=== PATIENT | male | born 1940 | race Caucasian/White ===

== ENCOUNTER → 2019-03-30 | Day surgery (SDC) | payer MEDICARE, BC ==
[~2019-03-30] VITALS: Ht 175.3 cm; Wt 100.7 kg
[~2019-03-30] MED LIST: AMLODIPINE BESYL5 MG PO; ASPIR 8181 MG PO; CEFDINIR PO; FENTANYL CITRATE/PF 100MCG/2 ML INJ ONE; FOSAMAX70 MG; IOPAMIDOL 300MG/ML 50ML INFUS..BTL IV ONE; LASIX20 MG PO; LASIX40 MG PO; LIDOCAINE HCL 2% LOCAL 20 ML VIAL ONE; LUPRON DEPOT3.75 MG; METOPROLOL TART50 MG PO; MIDAZOLAM HCL 2 MG/2 ML VIAL ONE; PREDNISONE10 MG PO; SODIUM CHLORIDE 0.9% 500ML 0 ML ONE; SODIUM CHLORIDE 0.9% 500ML 1,000 ML ONE; VITAMIN D1000 UNI1 PO; provastatin PO; tumeric PO
--- OUTSIDE RECORDS SUMMARY | 2019-03-30 06:32 | XMS REPORT | Clinical Summary ---
Author Author [facility] Organization [facility] Address Unknown Phone Unavailable Care Team Providers Care Warehouse Shipper Name Role Phone Asked, No Pcp PCP Unavailable Allergies Comments Active Allergy Reactions Severity Noted Date Penicillins Rash Low 09/12/2017 Medications End Date Status Medication Sig Dispensed Refills Start Date Active metFORMIN (GLUCOPHAGE) Take 1,000 mg 0 1,000 mg tablet by mouth 2 (two) times a day. Active quinapril (ACCUPRIL) 40 Take 40 mg by 0 MG tablet mouth 2 (two) times a day. Active hydrALAZINE (APRESOLINE) Take 50 mg by 0 50 MG tablet mouth 2 (two) times a day. Active metoprolol tartrate Take 50 mg by 0 (LOPRESSOR) 50 mg tablet mouth 2 (two) times a day. Active amLODIPine (NORVASC) 5 mg Take 5 mg by 0 tablet mouth daily. Active alendronate (FOSAMAX) 70 Take 70 mg by 0 MG tablet mouth every 7 days. Take in the morning with a full glass of water on an empty stomach, do NOT take anything else by mouth or lie down for the next 30 min. Active aspirin 325 MG tablet Take 325 mg 0 by mouth daily. Active cholecalciferol, vitamin Take 5,000 0 D3, (VITAMIN D3) 5,000 Units by unit tablet mouth daily. Active POMEGRANATE Take 250 mg 0 XT/BIOFLAV,CITRUS by mouth (POMEGRANATE ORAL) daily. Active LYCOPENE ORAL Take 10 mg by 0 mouth daily. Active MIN17/NETTLE/PUMPKIN/SAW Take 1 0 PALME (PROSTATE THERAPY capsule by ORAL) mouth 2 (two) times a day. Name of medication is Zyflamend Active TURMERIC ROOT EXTRACT Take 1 tablet 0 ORAL by mouth daily. Active Problems Problem Noted Date Bronchitis 09/12/2017 Family History Medical History Relation Name Comments Heart disease Father No Known Problems Mother Relation Name Status Comments Father Mother Social History Date Tobacco Use Types Packs/Day Years Used Former Smoker Smokeless Tobacco: Never Used Alcohol Use Drinks/Week oz/Week Comments Defer Sex Assigned at Date Recorded Not on file Industry Job Start Date Occupation Not on file Not on file Not on file Travel End Travel History Travel Start No recent travel history available. Last Filed Vital Signs Not on file Plan of Treatment Health Maintenance Due Date Last Done Comments SHINGLES VACCINES (#1) 1988 65+ PNEUMOCOCCAL VACCINE 2003 (1 of 2 - PCV13) INFLUENZA VACCINE 04/14/2019 Results Not on fileafter 03/29/2018 Insurance Type Payer Benefit Subscriber ID Effective Phone Address Plan / Dates Group PPO BCBS BCBS xxxxxxxxxxxx 2012-P CHOICE resent PPO/EDUARD L EMPL PPO Medicare MEDICARE MEDICARE xxxxxxxxxx 2017 MIO, PART A AND -Present [place] Advance Directives Patient has advance care planning documents, and code status on file. For more i nformation, please contact: [facility] [address] [place] [address] Date Inactivated Comments Code Status Date Activated 09/14/2017 3:54 PM Full Code 09/12/2017 2:47 PM Code Status decision reached by: Patient
--- OUTSIDE RECORDS SUMMARY | 2019-03-30 06:33 | XMS REPORT ---
Author Author [facility] Address Unknown Phone Unavailable Care Team Providers Care Health Promotion Educator Name Role Phone Unavailable Unavailable Payers Payer Name Policy Type Policy Number Effective Date Expiration Date Problems This patient has no known problems. Allergies, Adverse Reactions, Alerts Allergy Name Allergy Type Status Severity Reaction(s) Onset Date Inactive Date Treating Clinician Comments ANTONIA Inhibitors DA Active MO 2019-03-04 00:00:00 Penicillins DA Active LA 2018-12-23 00:00:00 Penicillins DA Active LA 2018-05-30 00:00:00 Penicillins DA Active LA 2015-09-19 00:00:00 Medications This patient has no known medications. Results Test Description Test Time Test Comments Text Results Atomic Results Result Comments GLUBED 2019-03-09 14:48:00 GLUBED (test code=GLUBED) 98 MG/DL 70-110 Performed by certified steam clothes press operator at [facility] NEPHR CATH [id number] 14:30:00 FAX: Issa Valdivia [phone] [place]: St: ADM FAX: Chandrakant Joe MD [phone] FAX: Herb Martell MD [phone] Name: JOHN HENRIQUEZ [facility] [place] : 1940 Age/S: 78/M [address] [place] [address] Unit #: [id number] Loc: G.[address] [place] [address] Phys: Herb Gandara MD Acct: [id number] Dis Date: Status: ADM IN ONE #: [phone] Exam Date: 03/09/2019 1400 FAX #: [phone] Reason: EXAMS: CPT CODE: [id number] [place] [id number] PROCEDURE: Placement of percutaneous nephrostomy catheter using ultrasound and flu oroscopic guidance. INDICATION: 78-year-old male with right-sided hydronephrosis. COMPARISON: CT abdomen/pelvis 03/02/2019 TECHNICAL: Fluoroscopic time was 8.8 minutes. Reference Air Kerma Dose 607 mGy. MODERATE SEDATION: General anesthesia provided by the anesthesia service. PROCEDURE: The procedure, ri sks, benefits and alternatives were discussed. Informed consent was obtain ed. Timeout was performed prior to the procedure. The patien t was placed in the prone position and flank was prepped and draped in the usual sterile fashion. 1% lidocaine was used for local anesthesia. Ultra sound guidance was used to gain access into the right renal collecting sys tem with a 21 gauge needle. Ultrasound image was obtained for permanent r ecording and reporting. A lower pole renal calyx was accessed. Urine was aspirated. Contrast injection confirmed needle position within the renal c ollecting system. Serial exchanges and dilation were performed over guidew shanika with Seldinger technique. A Kumpe catheter and guidewire were then adv anced in concert through the renal collecting system into the distal urete r to better identify the location of obstruction. The Kumpe catheter was then exchanged for an 8.5 Uzbek nephrostomy catheter over the guidew shanika with the pigtail formed in the renal pelvis. Final nephrostogram throu gh the percutaneous nephrostomy catheter was performed. The catheter was s ecured to the skin. Sterile dressing was applied. There were no evident co mplications and the patient had no complaints. FINDINGS: Nephrostogram demonstrates right-sided hydronephrosis and hydroureter w ith level obstruction identified in the distal ureter at the level of the mid sacrum, adjacent to multiple surgical clips. No definite transit of c ontrast into the bladder was identified. PAGE 1 Marika d Report (CONTINUED) FAX: Issa Valdivia [place]: St: ADM FAX: Chandrakant Joe MD [phone] FAX: Herb Martell MD [phone] Name: MARTINEZ,JOHNCHATO Darden [facility] : 1940 Age/S: 78/M [address] [place] [address] Unit #: [id number] Loc: G.6623 [place] [address] Phys: Herb Gandara MD Acct: [id number] Dis Date: Status: A DM IN PHONE #: [phone] Exam Date: 03/09/2019 1400 FAX #: [phone] Reason: EXAMS: CPT CODE: [id number] [facility] [place] [address] <Continued> Final nephrostogram through the percutaneous nephrostomy catheter confirmed satisfactory positioning. IMPRESSION: 1. Technically successful placement of right percutaneous nephrostomy catheter using ultrasound and fluoroscopic guidance. 2. Nephrostogram demonstrates obstruction at the level of the distal ureter. SL: [id number] at 1430 Reported and signed by: Malina Dhaliwal M.D. CC: Issa Prasad MD; Chandrakant Merrill MD; Herb Gandara MD Technologist: Marylin RIVAS(R) Trnscrd Date/Time/By: 03/09/2019 (0930) : By: [email or web address] Orig Print D/T: S: 03/09/2019 (2678) PAGE 2 Signed Report PROTHROMBIN [id number] 09:20:00* Test Item Value Reference Range Comments PROTHROMBIN TIME PATIENT (test code=PTP) 16.0 SECONDS 9.3-12.9 INTERNATIONAL NORMAL RATIO (test code=INR) 1.4 0.8-1.2 TARGET INR BY INDICATION Indication INR1. Prophylaxis of venous thrombosis 2.0 - 3.0 (orthopedic surgery), Prophylaxis of venous thrombosis (other than high-risk surgery), Treatment of Deep Vein Thrombosis/Pulmonary Embolism, Prevention of systemic embolism - Tissue heart valves, Acute Myocardial Infarction (to prevent systemic embolism), Valvular heart disease, Atrial Fibrillation, Bileaflet mechanical valve in aortic position.2. Mechanical prosthetic valves (high risk), 2.5 - 3.5 Presence of Lupus Anticoagulant or Antiphospholipid Antibodies, Prevention of systemic embolism - Acute Myocardial Infarction (to prevent recurrent infarct). THROMBOPLASTIN TIME [id number] 09:20:00* Test Item Value Reference Range Comments THROMBOPLASTIN TIME PARTIAL (test code=PTT) 25.7 Seconds 25.0-39.5 Therapeutic Range: 50.4 - 88.3 Seconds Effective 12/28/2018 CBC W/AUTO [id number] 09:12:00* Test Item Value Reference Range Comments WHITE BLOOD CELL (test code=WBC) 12.50 x10 3/uL 4.5-11.0 RED BLOOD CELL (test code=RBC) 2.38 x10 6/uL 4.00-5.60 HEMOGLOBIN (test code=HGB) 8.0 g/dL 12.5-16.9 HEMATOCRIT (test code=HCT) 26.6 % 37.5-50.7 MEAN CELL VOLUME (test code=MCV) 111.8 fL 81.0-99.0 MEAN CELL HGB (test code=MCH) 33.6 pg 27.0-33.0 MEAN CELL HGB CONCETRATION (test code=MCHC) 30.1 g/dL 33.0-37.0 RED CELL DISTRIBUTION WIDTH CV (test code=RDW) 21.4 % 11.5-14.5 RED CELL DISTRIBUTION WIDTH SD (test code=RDW-SD) 81.8 fL 37.0-54.0 PLATELET COUNT (test code=PLT) 196 x10 3/uL 150-400 MEAN PLATELET VOLUME (test code=MPV) 9.6 fL 7.0-9.0 NEUTROPHIL % (test code=NT%) 89.3 % 56.0-77.0 IMMATURE GRANULOCYTE % (test code=IG%) 1.0 % 0.0-2.0 LYMPHOCYTE % (test code=LY%) 5.9 % 14.0-32.0 MONOCYTE % (test code=MO%) 3.4 % 4.8-9.0 EOSINOPHIL % (test code=EO%) 0.2 % 0.3-3.7 BASOPHIL % (test code=BA%) 0.2 % 0.0-2.0 NUCLEATED RBC % (test code=NRBC%) 0.7 % 0-0 NEUTROPHIL # (test code=NT#) 11.16 x10 3/uL 2.0-7.6 IMMATURE GRANULOCYTE # (test code=IG#) 0.13 x10 3/uL 0.00-0.03 LYMPHOCYTE # (test code=LY#) 0.74 x10 3/uL 1.0-3.8 MONOCYTE # (test code=MO#) 0.43 x10 3/uL 0.1-0.8 EOSINOPHIL # (test code=EO#) 0.02 x10 3/uL 0.0-0.2 BASOPHIL # (test code=BA#) 0.02 x10 3/uL 0.0-0.2 NUCLEATED RBC # (test code=NRBC#) 0.09 x10 3/uL 0.0-0.1 MANUAL DIFF REQUIRED (test code=MDIFF) NO COMPREHENSIVE METABOLIC [id number] 08:20:00* Test Item Value Reference Range Comments SODIUM (test code=NA) 140 mEq/L 134-147 POTASSIUM (test code=K) 4.7 mEq/L 3.4-5.0 CHLORIDE (test code=CL) 110 mEq/L 100-108 CARBON DIOXIDE (test code=CO2) 23 mEq/L 21-33 ANION GAP (test code=GAP) 12 0-20 GLUCOSE (test code=GLU) 88 mg/dL 70-110 BLOOD UREA NITROGEN (test code=BUN) 26 mg/dL 7-18 GLOMERULAR FILTRATION RATE (test code=GFR) 53.1 70-80 Units of measure=ml/min/1.73 m2 CREATININE (test code=CREAT) 1.3 mg/dL 0.6-1.3 TOTAL PROTEIN (test code=PROT) 5.3 g/dL 6.4-8.2 ALBUMIN (test code=ALB) 2.20 g/dL 3.4-5.0 CALCIUM (test code=CA) 8.0 mg/dL 8.0-10.5 BILIRUBIN TOTAL (test code=BILT) 0.40 mg/dL 0.0-1.0 SGOT/AST (test code=AST) 25 IUnit/L 15-37 SGPT/ALT (test code=ALT) 39 IUnit/L 15-65 ALKALINE PHOSPHATASE TOTAL (test code=ALKP) 41 IUnit/L 20-125 [id number] 08:20:00* Test Item Value Reference Range Comments MAGNESIUM (test code=MAG) 1.90 mg/dL 1.8-2.4 BASIC METABOLIC [id number] 08:16:00* Test Item Value Reference Range Comments SODIUM (test code=NA) 139 mEq/L 134-147 POTASSIUM (test code=K) 5.0 mEq/L 3.4-5.0 CHLORIDE (test code=CL) 110 mEq/L 100-108 CARBON DIOXIDE (test code=CO2) 23 mEq/L 21-33 ANION GAP (test code=GAP) 11 0-20 GLUCOSE (test code=GLU) 95 mg/dL 70-110 BLOOD UREA NITROGEN (test code=BUN) 30 mg/dL 7-18 GLOMERULAR FILTRATION RATE (test code=GFR) 39.0 70-80 Units of measure=ml/min/1.73 m2 CREATININE (test code=CREAT) 1.7 mg/dL 0.6-1.3 CALCIUM (test code=CA) 8.5 mg/dL 8.0-10.5 [id number] 08:16:00* Test Item Value Reference Range Comments MAGNESIUM (test code=MAG) 2.30 mg/dL 1.8-2.4 CBC W/AUTO [id number] 18:46:00* Test Item Value Reference Range Comments WHITE BLOOD CELL (test code=WBC) 14.38 x10 3/uL 4.5-11.0 RED BLOOD CELL (test code=RBC) 2.50 x10 6/uL 4.00-5.60 HEMOGLOBIN (test code=HGB) 8.4 g/dL 12.5-16.9 HEMATOCRIT (test code=HCT) 27.2 % 37.5-50.7 MEAN CELL VOLUME (test code=MCV) 108.8 fL 81.0-99.0 MEAN CELL HGB (test code=MCH) 33.6 pg 27.0-33.0 MEAN CELL HGB CONCETRATION (test code=MCHC) 30.9 g/dL 33.0-37.0 RED CELL DISTRIBUTION WIDTH CV (test code=RDW) 21.6 % 11.5-14.5 RED CELL DISTRIBUTION WIDTH SD (test code=RDW-SD) 77.5 fL 37.0-54.0 PLATELET COUNT (test code=PLT) 195 x10 3/uL 150-400 MEAN PLATELET VOLUME (test code=MPV) 9.6 fL 7.0-9.0 NEUTROPHIL % (test code=NT%) 91.6 % 56.0-77.0 IMMATURE GRANULOCYTE % (test code=IG%) 1.3 % 0.0-2.0 LYMPHOCYTE % (test code=LY%) 3.5 % 14.0-32.0 MONOCYTE % (test code=MO%) 3.3 % 4.8-9.0 EOSINOPHIL % (test code=EO%) 0.1 % 0.3-3.7 BASOPHIL % (test code=BA%) 0.2 % 0.0-2.0 NUCLEATED RBC % (test code=NRBC%) 1.3 % 0-0 NEUTROPHIL # (test code=NT#) 13.18 x10 3/uL 2.0-7.6 IMMATURE GRANULOCYTE # (test code=IG#) 0.19 x10 3/uL 0.00-0.03 LYMPHOCYTE # (test code=LY#) 0.50 x10 3/uL 1.0-3.8 MONOCYTE # (test code=MO#) 0.47 x10 3/uL 0.1-0.8 EOSINOPHIL # (test code=EO#) 0.01 x10 3/uL 0.0-0.2 BASOPHIL # (test code=BA#) 0.03 x10 3/uL 0.0-0.2 NUCLEATED RBC # (test code=NRBC#) 0.18 x10 3/uL 0.0-0.1 MANUAL DIFF REQUIRED (test code=MDIFF) NO SLIDE REVIEWED, CONSISTENT WITH AUTO DIFF. BASIC METABOLIC [id number] 17:34:00* Test Item Value Reference Range Comments SODIUM (test code=NA) 138 mEq/L 134-147 POTASSIUM (test code=K) 4.9 mEq/L 3.4-5.0 CHLORIDE (test code=CL) 110 mEq/L 100-108 CARBON DIOXIDE (test code=CO2) 23 mEq/L 21-33 ANION GAP (test code=GAP) 10 0-20 GLUCOSE (test code=GLU) 104 mg/dL 70-110 BLOOD UREA NITROGEN (test code=BUN) 29 mg/dL 7-18 GLOMERULAR FILTRATION RATE (test code=GFR) 39.0 70-80 Units of measure=ml/min/1.73 m2 CREATININE (test code=CREAT) 1.7 mg/dL 0.6-1.3 CALCIUM (test code=CA) 8.4 mg/dL 8.0-10.5 CBC W/AUTO [id number] 17:25:00* Test Item Value Reference Range Comments WHITE BLOOD CELL (test code=WBC) 14.38 x10 3/uL 4.5-11.0 RED BLOOD CELL (test code=RBC) 2.50 x10 6/uL 4.00-5.60 HEMOGLOBIN (test code=HGB) 8.4 g/dL 12.5-16.9 HEMATOCRIT (test code=HCT) 27.2 % 37.5-50.7 MEAN CELL VOLUME (test code=MCV) 108.8 fL 81.0-99.0 MEAN CELL HGB (test code=MCH) 33.6 pg 27.0-33.0 MEAN CELL HGB CONCETRATION (test code=MCHC) 30.9 g/dL 33.0-37.0 RED CELL DISTRIBUTION WIDTH CV (test code=RDW) 21.6 % 11.5-14.5 RED CELL DISTRIBUTION WIDTH SD (test code=RDW-SD) 77.5 fL 37.0-54.0 PLATELET COUNT (test code=PLT) 195 x10 3/uL 150-400 MEAN PLATELET VOLUME (test code=MPV) 9.6 fL 7.0-9.0 LYMPHOCYTE % (test code=LY%) % 14.0-32.0 MANUAL DIFF REQUIRED (test code=MDIFF) - NM RENAL FUNCT W/PHA [id number] 14:54:00 FAX: Adal PrasadIssa Ryann [phone] [place]: St: ADM FAX: Chandrakant Jeo MD [phone] FAX: Herb Martell MD [phone] Name: JOHN HENRIQUEZ [facility] : 1940 Age/S: 78/M [address] [place] [address] Unit #: [id number] Loc: [address] [address] Phys: Herb Gandara MD Acct: [id number] Dis Date: Status: ADM IN PH ONE #: [phone] Exam Date: 03/07/2019 1329 FAX #: [phone] Reason: RIGHT HYDRO AND RENAL FAILURE EXAMS: CPT CODE: [id number] [place] RENAL FUNCT W/[facility] [address] [facility] AND FUNCTION WITH MAG3 AND DIURETIC LASIX RENOGRAM 02/13 AT 1325 HOURS. CLINICAL HISTORY: Right hydronephrosis and r enal failure. COMPARISON STUDIES: Abdomen CT 03/02/2019. RADIOPHARMACEUTICAL: 8 mCi of 99 M technetium MAG3 intravenously. 40 mg of Lasix were then administered intravenously at 29 minutes and diuretic time/activity curves for both kidneys were obtained. FINDINGS: Po sterior blood flow and function images of the kidneys were obtained. Blood flow images demonstrate symmetric bilateral renal parenchymal perfusion w ith early visualization of left renal activity after approximately 6 secon ds after visualization of aortic activity. Minimal, if any, flow activity was seen to the right kidney. Slightly asymmetric radiotracer distributi on is noted, left greater than right by initial images and progressive rad iotracer accumulation in the left kidney. Estimated time to peak activity for the right and left kidney is 43 and 4 minutes, respectively. This is p rolonged on the right and normal on the left. Estimated differential uptak e for the right and left kidney is 24% and 76%, respectively. Total diuretic estimated T-1/2 for the right and left kidney is greater than 50 and 15 minutes, respectively. Reference range is between 8 and 12 minutes. IMPRESSION: 1. Dilated, obstructed ri ght renal collecting system with impaired diuretic response. 2. Nondilated, nonobstructed left renal collecting system with preserved di uretic response. Predominant radiotracer clearance at the time of diuret ic injection results in mild artifactual elevation of the T-1/2. 3. Differential radiotracer uptake for the right and left kidney of arnold roximately 24 and 76%, respectively. SL: DUGLAS PAGE 1 Signed Report (CONTINUED) FAX: Issa Valdivia [phone] [place]: St: ADM FAX: Chandrakant Joe MD [phone] FAX: Herb Martell MD [phone] -- N demetri: JOHN HENRIQUEZ [facility] : 1940 Age/S: 78/M [address] [place] [address] Unit #: [id number] Loc: [address] [address] Phys: Herb Gandara MD Acct: [id number] Dis D ate: Status: ADM IN PHONE #: [phone] Exam Date: 03/07/2019 4880 FAX #: [phone] Reason: RIGHT HYDRO AND RENAL FAILURE EXAMS: CPT CODE: [id number] [place] RENAL FUNCT W/[place] [address] <Continued> at 1454 Reported and signed by: Tung Calabrese M.D. CC: Issa Prasad MD; Chandrakant Merrill MD; Herb Gandara MD Technologist: Chica Mak, RT(N)(CT)(PET) Trnscrd Date/Time/By: 03/07/2019 (8296) : By: [email or web address] Orig Print D/T: S: 03/07/2019 (4398) PAGE 2 Signed Report AG PROSTATE [id number] 11:18:00* Test Item Value Reference Range Comments AG PROSTATE SPECIFIC (test code=PSA) 51.9 ng/mL 0.05-4.0 AG PROSTATE [id number] 11:18:00* Test Item Value Reference Range Comments AG PROSTATE SPECIFIC (test code=PSA) 51.9 ng/mL 0.05-4.0 CBC W/AUTO [id number] 11:36:00* Test Item Value Reference Range Comments WHITE BLOOD CELL (test code=WBC) 13.18 x10 3/uL 4.5-11.0 RED BLOOD CELL (test code=RBC) 2.35 x10 6/uL 4.00-5.60 HEMOGLOBIN (test code=HGB) 7.9 g/dL 12.5-16.9 HEMATOCRIT (test code=HCT) 25.3 % 37.5-50.7 MEAN CELL VOLUME (test code=MCV) 107.7 fL 81.0-99.0 MEAN CELL HGB (test code=MCH) 33.6 pg 27.0-33.0 MEAN CELL HGB CONCETRATION (test code=MCHC) 31.2 g/dL 33.0-37.0 RED CELL DISTRIBUTION WIDTH CV (test code=RDW) 21.4 % 11.5-14.5 RED CELL DISTRIBUTION WIDTH SD (test code=RDW-SD) 79.2 fL 37.0-54.0 PLATELET COUNT (test code=PLT) 155 x10 3/uL 150-400 MEAN PLATELET VOLUME (test code=MPV) 9.9 fL 7.0-9.0 NEUTROPHIL % (test code=NT%) 92.1 % 56.0-77.0 IMMATURE GRANULOCYTE % (test code=IG%) 1.7 % 0.0-2.0 LYMPHOCYTE % (test code=LY%) 3.7 % 14.0-32.0 MONOCYTE % (test code=MO%) 2.3 % 4.8-9.0 EOSINOPHIL % (test code=EO%) 0.0 % 0.3-3.7 BASOPHIL % (test code=BA%) 0.2 % 0.0-2.0 NUCLEATED RBC % (test code=NRBC%) 0.7 % 0-0 NEUTROPHIL # (test code=NT#) 12.14 x10 3/uL 2.0-7.6 IMMATURE GRANULOCYTE # (test code=IG#) 0.23 x10 3/uL 0.00-0.03 LYMPHOCYTE # (test code=LY#) 0.49 x10 3/uL 1.0-3.8 MONOCYTE # (test code=MO#) 0.30 x10 3/uL 0.1-0.8 EOSINOPHIL # (test code=EO#) 0.00 x10 3/uL 0.0-0.2 BASOPHIL # (test code=BA#) 0.02 x10 3/uL 0.0-0.2 NUCLEATED RBC # (test code=NRBC#) 0.09 x10 3/uL 0.0-0.1 MANUAL DIFF REQUIRED (test code=MDIFF) NO RBC [id number] 11:36:00* Test Item Value Reference Range Comments ANISOCYTOSIS (test code=ANISO) 3+ MACROCYTOSIS (test code=MACR) 2+ CBC W/AUTO [id number] 07:57:00* Test Item Value Reference Range Comments WHITE BLOOD CELL (test code=WBC) 13.18 x10 3/uL 4.5-11.0 RED BLOOD CELL (test code=RBC) 2.35 x10 6/uL 4.00-5.60 HEMOGLOBIN (test code=HGB) 7.9 g/dL 12.5-16.9 HEMATOCRIT (test code=HCT) 25.3 % 37.5-50.7 MEAN CELL VOLUME (test code=MCV) 107.7 fL 81.0-99.0 MEAN CELL HGB (test code=MCH) 33.6 pg 27.0-33.0 MEAN CELL HGB CONCETRATION (test code=MCHC) 31.2 g/dL 33.0-37.0 RED CELL DISTRIBUTION WIDTH CV (test code=RDW) 21.4 % 11.5-14.5 RED CELL DISTRIBUTION WIDTH SD (test code=RDW-SD) 79.2 fL 37.0-54.0 PLATELET COUNT (test code=PLT) 155 x10 3/uL 150-400 MEAN PLATELET VOLUME (test code=MPV) 9.9 fL 7.0-9.0 NEUTROPHIL % (test code=NT%) 92.1 % 56.0-77.0 IMMATURE GRANULOCYTE % (test code=IG%) 1.7 % 0.0-2.0 LYMPHOCYTE % (test code=LY%) 3.7 % 14.0-32.0 MONOCYTE % (test code=MO%) 2.3 % 4.8-9.0 EOSINOPHIL % (test code=EO%) 0.0 % 0.3-3.7 BASOPHIL % (test code=BA%) 0.2 % 0.0-2.0 NUCLEATED RBC % (test code=NRBC%) 0.7 % 0-0 NEUTROPHIL # (test code=NT#) 12.14 x10 3/uL 2.0-7.6 IMMATURE GRANULOCYTE # (test code=IG#) 0.23 x10 3/uL 0.00-0.03 LYMPHOCYTE # (test code=LY#) 0.49 x10 3/uL 1.0-3.8 MONOCYTE # (test code=MO#) 0.30 x10 3/uL 0.1-0.8 EOSINOPHIL # (test code=EO#) 0.00 x10 3/uL 0.0-0.2 BASOPHIL # (test code=BA#) 0.02 x10 3/uL 0.0-0.2 NUCLEATED RBC # (test code=NRBC#) 0.09 x10 3/uL 0.0-0.1 MANUAL DIFF REQUIRED (test code=MDIFF) NO RBC [id number] 07:57:00* Test Item Value Reference Range Comments ANISOCYTOSIS (test code=ANISO) CBC W/AUTO [id number] 07:57:00* Test Item Value Reference Range Comments WHITE BLOOD CELL (test code=WBC) 13.18 x10 3/uL 4.5-11.0 RED BLOOD CELL (test code=RBC) 2.35 x10 6/uL 4.00-5.60 HEMOGLOBIN (test code=HGB) 7.9 g/dL 12.5-16.9 HEMATOCRIT (test code=HCT) 25.3 % 37.5-50.7 MEAN CELL VOLUME (test code=MCV) 107.7 fL 81.0-99.0 MEAN CELL HGB (test code=MCH) 33.6 pg 27.0-33.0 MEAN CELL HGB CONCETRATION (test code=MCHC) 31.2 g/dL 33.0-37.0 RED CELL DISTRIBUTION WIDTH CV (test code=RDW) 21.4 % 11.5-14.5 RED CELL DISTRIBUTION WIDTH SD (test code=RDW-SD) 79.2 fL 37.0-54.0 PLATELET COUNT (test code=PLT) 155 x10 3/uL 150-400 MEAN PLATELET VOLUME (test code=MPV) 9.9 fL 7.0-9.0 NEUTROPHIL % (test code=NT%) 92.1 % 56.0-77.0 IMMATURE GRANULOCYTE % (test code=IG%) 1.7 % 0.0-2.0 LYMPHOCYTE % (test code=LY%) 3.7 % 14.0-32.0 MONOCYTE % (test code=MO%) 2.3 % 4.8-9.0 EOSINOPHIL % (test code=EO%) 0.0 % 0.3-3.7 BASOPHIL % (test code=BA%) 0.2 % 0.0-2.0 NUCLEATED RBC % (test code=NRBC%) 0.7 % 0-0 NEUTROPHIL # (test code=NT#) 12.14 x10 3/uL 2.0-7.6 IMMATURE GRANULOCYTE # (test code=IG#) 0.23 x10 3/uL 0.00-0.03 LYMPHOCYTE # (test code=LY#) 0.49 x10 3/uL 1.0-3.8 MONOCYTE # (test code=MO#) 0.30 x10 3/uL 0.1-0.8 EOSINOPHIL # (test code=EO#) 0.00 x10 3/uL 0.0-0.2 BASOPHIL # (test code=BA#) 0.02 x10 3/uL 0.0-0.2 NUCLEATED RBC # (test code=NRBC#) 0.09 x10 3/uL 0.0-0.1 MANUAL DIFF REQUIRED (test code=MDIFF) NO RBC [id number] 07:57:00* Test Item Value Reference Range Comments ANISOCYTOSIS (test code=ANISO) BASIC METABOLIC [id number] 07:40:00* Test Item Value Reference Range Comments SODIUM (test code=NA) 139 mEq/L 134-147 POTASSIUM (test code=K) 4.7 mEq/L 3.4-5.0 CHLORIDE (test code=CL) 110 mEq/L 100-108 CARBON DIOXIDE (test code=CO2) 23 mEq/L 21-33 ANION GAP (test code=GAP) 11 0-20 GLUCOSE (test code=GLU) 127 mg/dL 70-110 BLOOD UREA NITROGEN (test code=BUN) 26 mg/dL 7-18 GLOMERULAR FILTRATION RATE (test code=GFR) 45.0 70-80 Units of measure=ml/min/1.73 m2 CREATININE (test code=CREAT) 1.5 mg/dL 0.6-1.3 CALCIUM (test code=CA) 7.6 mg/dL 8.0-10.5 BASIC METABOLIC [id number] 09:25:00* Test Item Value Reference Range Comments SODIUM (test code=NA) 138 mmol/l 134.0-147.0 POTASSIUM (test code=K) 4.1 mmol/L 3.6-5.2 CHLORIDE (test code=CL) 106 mmol/l 98.0-107.0 CARBON DIOXIDE (test code=CO2) 21.9 mmol/l 21.0-33.0 ANION GAP (test code=GAP) 14.2 0-20 GLUCOSE (test code=GLU) 191 mg/dl 70.0-110.0 BLOOD UREA NITROGEN (test code=BUN) 29 mg/dl 7.0-18.0 CREATININE (test code=CREAT) 1.60 mg/dL 0.60-1.30 GFR NON BLACK (test code=GFRNONBLACK) 44 mL/min 70-80 GFR BLACK (test code=GFRBLACK) 54 mL/min 85-97 CALCIUM (test code=CA) 7.5 mg/dl 8.0-10.5 HARDSTICK PATIENT. NOTIFIED NURSE: VARUN.NATALIA.MARITO 03/05/19 0723.CBC W/AUTO DIFF 2019-03-05 09:11:00* Test Item Value Reference Range Comments WHITE BLOOD CELL (test code=WBC) 16.4 K/mm3 4.5-11.0 RED BLOOD CELL (test code=RBC) 2.57 M/mm3 4.40-5.90 HEMOGLOBIN (test code=HGB) 8.5 gm/dL 13.0-17.0 HEMATOCRIT (test code=HCT) 26.9 % 36.0-48.0 MEAN CELL VOLUME (test code=MCV) 104.7 UM3 80.0-94.0 MEAN CELL HGB (test code=MCH) 33.1 UUG 25.5-32.5 MEAN CELL HGB CONCETRATION (test code=MCHC) 31.6 gm/dL 29.0-35.5 RED CELL DISTRIBUTION WIDTH (test code=RDW) 21.5 % 11.5-15.0 RED CELL DISTRIBUTION WIDTH SD (test code=RDW-SD) 77.1 fL 34.8-50.2 PLATELET COUNT (test code=PLT) 147 K/mm3 150-400 MEAN PLATELET VOLUME (test code=MPV) 10.1 fl 7.4-10.4 NEUTROPHIL % (test code=NT%) 92.2 % 49.0-76.0 IMMATURE GRANULOCYTE % (test code=IG%) 1.2 % 0.0-0.4 LYMPHOCYTE % (test code=LY%) 4.1 % 23.0-38.0 MONOCYTE % (test code=MO%) 2.3 % 1.0-10.0 EOSINOPHIL % (test code=EO%) 0.1 % 1.0-5.0 BASOPHIL % (test code=BA%) 0.1 % 0.0-1.0 NEUTROPHIL # (test code=NT#) 15.1 K/mm3 2.4-6.3 IMMATURE GRANULOCYTE # (test code=IG#) 0.19 x10 3/uL 0.00-0.07 LYMPHOCYTE # (test code=LY#) 0.7 K/mm3 1.2-4.0 MONOCYTE # (test code=MO#) 0.4 K/mm3 0.0-0.6 EOSINOPHIL # (test code=EO#) 0.0 K/MM3 0.0-0.7 BASOPHIL # (test code=BA#) 0.0 K/mm3 0.0-0.2 ANISOCYTOSIS (test code=ANISO) 1+ HARDSTICK PATIENT. NOTIFIED NURSE: VARUN.LAB.MARITO 03/05/19 0724.CBC W/AUTO DIFF 2019-03-05 09:10:00* Test Item Value Reference Range Comments WHITE BLOOD CELL (test code=WBC) 16.4 K/mm3 4.5-11.0 RED BLOOD CELL (test code=RBC) 2.57 M/mm3 4.40-5.90 HEMOGLOBIN (test code=HGB) 8.5 gm/dL 13.0-17.0 HEMATOCRIT (test code=HCT) 26.9 % 36.0-48.0 MEAN CELL VOLUME (test code=MCV) 104.7 UM3 80.0-94.0 MEAN CELL HGB (test code=MCH) 33.1 UUG 25.5-32.5 MEAN CELL HGB CONCETRATION (test code=MCHC) 31.6 gm/dL 29.0-35.5 RED CELL DISTRIBUTION WIDTH (test code=RDW) 21.5 % 11.5-15.0 RED CELL DISTRIBUTION WIDTH SD (test code=RDW-SD) 77.1 fL 34.8-50.2 PLATELET COUNT (test code=PLT) 147 K/mm3 150-400 MEAN PLATELET VOLUME (test code=MPV) 10.1 fl 7.4-10.4 NEUTROPHIL % (test code=NT%) 92.2 % 49.0-76.0 IMMATURE GRANULOCYTE % (test code=IG%) 1.2 % 0.0-0.4 LYMPHOCYTE % (test code=LY%) 4.1 % 23.0-38.0 MONOCYTE % (test code=MO%) 2.3 % 1.0-10.0 EOSINOPHIL % (test code=EO%) 0.1 % 1.0-5.0 BASOPHIL % (test code=BA%) 0.1 % 0.0-1.0 NEUTROPHIL # (test code=NT#) 15.1 K/mm3 2.4-6.3 IMMATURE GRANULOCYTE # (test code=IG#) 0.19 x10 3/uL 0.00-0.07 LYMPHOCYTE # (test code=LY#) 0.7 K/mm3 1.2-4.0 MONOCYTE # (test code=MO#) 0.4 K/mm3 0.0-0.6 EOSINOPHIL # (test code=EO#) 0.0 K/MM3 0.0-0.7 BASOPHIL # (test code=BA#) 0.0 K/mm3 0.0-0.2 HARDSTICK PATIENT. NOTIFIED NURSE: VARUN.LAB.KN 03/05/19 0724.BASIC METABOLIC [id number] 07:29:00* Test Item Value Reference Range Comments SODIUM (test code=NA) 140 mmol/l 134.0-147.0 POTASSIUM (test code=K) 4.1 mmol/L 3.6-5.2 CHLORIDE (test code=CL) 109 mmol/l 98.0-107.0 CARBON DIOXIDE (test code=CO2) 21.9 mmol/l 21.0-33.0 ANION GAP (test code=GAP) 13.2 0-20 GLUCOSE (test code=GLU) 153 mg/dl 70.0-110.0 BLOOD UREA NITROGEN (test code=BUN) 37 mg/dl 7.0-18.0 CREATININE (test code=CREAT) 1.74 mg/dL 0.60-1.30 GFR NON BLACK (test code=GFRNONBLACK) 40 mL/min 70-80 GFR BLACK (test code=GFRBLACK) 49 mL/min 85-97 CALCIUM (test code=CA) 7.2 mg/dl 8.0-10.5 CBC W/AUTO [id number] 07:29:00* Test Item Value Reference Range Comments WHITE BLOOD CELL (test code=WBC) 19.4 K/mm3 4.5-11.0 RED BLOOD CELL (test code=RBC) 2.48 M/mm3 4.40-5.90 HEMOGLOBIN (test code=HGB) 8.2 gm/dL 13.0-17.0 HEMATOCRIT (test code=HCT) 26.0 % 36.0-48.0 MEAN CELL VOLUME (test code=MCV) 104.8 UM3 80.0-94.0 MEAN CELL HGB (test code=MCH) 33.1 UUG 25.5-32.5 MEAN CELL HGB CONCETRATION (test code=MCHC) 31.5 gm/dL 29.0-35.5 RED CELL DISTRIBUTION WIDTH (test code=RDW) 22.2 % 11.5-15.0 RED CELL DISTRIBUTION WIDTH SD (test code=RDW-SD) 79.7 fL 34.8-50.2 PLATELET COUNT (test code=PLT) 117 K/mm3 150-400 MEAN PLATELET VOLUME (test code=MPV) 10.3 fl 7.4-10.4 NEUTROPHIL % (test code=NT%) 91.9 % 49.0-76.0 IMMATURE GRANULOCYTE % (test code=IG%) 1.1 % 0.0-0.4 LYMPHOCYTE % (test code=LY%) 2.8 % 23.0-38.0 MONOCYTE % (test code=MO%) 4.0 % 1.0-10.0 EOSINOPHIL % (test code=EO%) 0.1 % 1.0-5.0 BASOPHIL % (test code=BA%) 0.1 % 0.0-1.0 NEUTROPHIL # (test code=NT#) 17.9 K/mm3 2.4-6.3 IMMATURE GRANULOCYTE # (test code=IG#) 0.21 x10 3/uL 0.00-0.07 LYMPHOCYTE # (test code=LY#) 0.5 K/mm3 1.2-4.0 MONOCYTE # (test code=MO#) 0.8 K/mm3 0.0-0.6 EOSINOPHIL # (test code=EO#) 0.0 K/MM3 0.0-0.7 BASOPHIL # (test code=BA#) 0.0 K/mm3 0.0-0.2 CBC W/AUTO [id number] 07:29:00* Test Item Value Reference Range Comments WHITE BLOOD CELL (test code=WBC) 19.4 K/mm3 4.5-11.0 RED BLOOD CELL (test code=RBC) 2.48 M/mm3 4.40-5.90 HEMOGLOBIN (test code=HGB) 8.2 gm/dL 13.0-17.0 HEMATOCRIT (test code=HCT) 26.0 % 36.0-48.0 MEAN CELL VOLUME (test code=MCV) 104.8 UM3 80.0-94.0 MEAN CELL HGB (test code=MCH) 33.1 UUG 25.5-32.5 MEAN CELL HGB CONCETRATION (test code=MCHC) 31.5 gm/dL 29.0-35.5 RED CELL DISTRIBUTION WIDTH (test code=RDW) 22.2 % 11.5-15.0 RED CELL DISTRIBUTION WIDTH SD (test code=RDW-SD) 79.7 fL 34.8-50.2 PLATELET COUNT (test code=PLT) 117 K/mm3 150-400 MEAN PLATELET VOLUME (test code=MPV) 10.3 fl 7.4-10.4 NEUTROPHIL % (test code=NT%) 91.9 % 49.0-76.0 IMMATURE GRANULOCYTE % (test code=IG%) 1.1 % 0.0-0.4 LYMPHOCYTE % (test code=LY%) 2.8 % 23.0-38.0 MONOCYTE % (test code=MO%) 4.0 % 1.0-10.0 EOSINOPHIL % (test code=EO%) 0.1 % 1.0-5.0 BASOPHIL % (test code=BA%) 0.1 % 0.0-1.0 NEUTROPHIL # (test code=NT#) 17.9 K/mm3 2.4-6.3 IMMATURE GRANULOCYTE # (test code=IG#) 0.21 x10 3/uL 0.00-0.07 LYMPHOCYTE # (test code=LY#) 0.5 K/mm3 1.2-4.0 MONOCYTE # (test code=MO#) 0.8 K/mm3 0.0-0.6 EOSINOPHIL # (test code=EO#) 0.0 K/MM3 0.0-0.7 BASOPHIL # (test code=BA#) 0.0 K/mm3 0.0-0.2 ANISOCYTOSIS (test code=ANISO) 1+ LACTIC [id number] 14:53:00* Test Item Value Reference Range Comments LACTIC ACID (test code=LACT) 1.9 MMOL/L 0.4-2.0 [id number] 14:42:00* Test Item Value Reference Range Comments POTASSIUM (test code=K) 4.9 mmol/L 3.6-5.2 PT RECIEVING BLOOD СВЕТЛАНА BOURGEOIS WILL CALL WHEN DONE E.LAB.BD03/03/19 1215.CBC W/AUTO [id number] 12:11:00* Test Item Value Reference Range Comments WHITE BLOOD CELL (test code=WBC) 20.8 K/mm3 4.5-11.0 RED BLOOD CELL (test code=RBC) 2.08 M/mm3 4.40-5.90 HEMOGLOBIN (test code=HGB) 7.0 gm/dL 13.0-17.0 HEMATOCRIT (test code=HCT) 23.2 % 36.0-48.0 MEAN CELL VOLUME (test code=MCV) 111.5 UM3 80.0-94.0 MEAN CELL HGB (test code=MCH) 33.7 UUG 25.5-32.5 MEAN CELL HGB CONCETRATION (test code=MCHC) 30.2 gm/dL 29.0-35.5 RED CELL DISTRIBUTION WIDTH (test code=RDW) 22.8 % 11.5-15.0 RED CELL DISTRIBUTION WIDTH SD (test code=RDW-SD) 87.1 fL 34.8-50.2 PLATELET COUNT (test code=PLT) 152 K/mm3 150-400 MEAN PLATELET VOLUME (test code=MPV) 10.5 fl 7.4-10.4 NEUTROPHIL % (test code=NT%) 94.4 % 49.0-76.0 IMMATURE GRANULOCYTE % (test code=IG%) 1.1 % 0.0-0.4 LYMPHOCYTE % (test code=LY%) 2.4 % 23.0-38.0 MONOCYTE % (test code=MO%) 1.9 % 1.0-10.0 EOSINOPHIL % (test code=EO%) 0.0 % 1.0-5.0 BASOPHIL % (test code=BA%) 0.2 % 0.0-1.0 NEUTROPHIL # (test code=NT#) 19.7 K/mm3 2.4-6.3 IMMATURE GRANULOCYTE # (test code=IG#) 0.22 x10 3/uL 0.00-0.07 LYMPHOCYTE # (test code=LY#) 0.5 K/mm3 1.2-4.0 MONOCYTE # (test code=MO#) 0.4 K/mm3 0.0-0.6 EOSINOPHIL # (test code=EO#) 0.0 K/MM3 0.0-0.7 BASOPHIL # (test code=BA#) 0.0 K/mm3 0.0-0.2 MACROCYTOSIS (test code=MACR) 1+ CBC W/AUTO [id number] 06:35:00* Test Item Value Reference Range Comments WHITE BLOOD CELL (test code=WBC) 20.8 K/mm3 4.5-11.0 RED BLOOD CELL (test code=RBC) 2.08 M/mm3 4.40-5.90 HEMOGLOBIN (test code=HGB) 7.0 gm/dL 13.0-17.0 HEMATOCRIT (test code=HCT) 23.2 % 36.0-48.0 MEAN CELL VOLUME (test code=MCV) 111.5 UM3 80.0-94.0 MEAN CELL HGB (test code=MCH) 33.7 UUG 25.5-32.5 MEAN CELL HGB CONCETRATION (test code=MCHC) 30.2 gm/dL 29.0-35.5 RED CELL DISTRIBUTION WIDTH (test code=RDW) 22.8 % 11.5-15.0 RED CELL DISTRIBUTION WIDTH SD (test code=RDW-SD) 87.1 fL 34.8-50.2 PLATELET COUNT (test code=PLT) 152 K/mm3 150-400 MEAN PLATELET VOLUME (test code=MPV) 10.5 fl 7.4-10.4 NEUTROPHIL % (test code=NT%) 94.4 % 49.0-76.0 IMMATURE GRANULOCYTE % (test code=IG%) 1.1 % 0.0-0.4 LYMPHOCYTE % (test code=LY%) 2.4 % 23.0-38.0 MONOCYTE % (test code=MO%) 1.9 % 1.0-10.0 EOSINOPHIL % (test code=EO%) 0.0 % 1.0-5.0 BASOPHIL % (test code=BA%) 0.2 % 0.0-1.0 NEUTROPHIL # (test code=NT#) 19.7 K/mm3 2.4-6.3 IMMATURE GRANULOCYTE # (test code=IG#) 0.22 x10 3/uL 0.00-0.07 LYMPHOCYTE # (test code=LY#) 0.5 K/mm3 1.2-4.0 MONOCYTE # (test code=MO#) 0.4 K/mm3 0.0-0.6 EOSINOPHIL # (test code=EO#) 0.0 K/MM3 0.0-0.7 BASOPHIL # (test code=BA#) 0.0 K/mm3 0.0-0.2 BASIC METABOLIC [id number] 06:19:00* Test Item Value Reference Range Comments SODIUM (test code=NA) 143 mmol/l 134.0-147.0 POTASSIUM (test code=K) 5.4 mmol/L 3.6-5.2 IS SAMPLE HEMOLYSED? NO VISIBLE HEMOLYSIS CHLORIDE (test code=CL) 110 mmol/l 98.0-107.0 CARBON DIOXIDE (test code=CO2) 21.3 mmol/l 21.0-33.0 ANION GAP (test code=GAP) 17.1 0-20 GLUCOSE (test code=GLU) 179 mg/dl 70.0-110.0 BLOOD UREA NITROGEN (test code=BUN) 59 mg/dl 7.0-18.0 CREATININE (test code=CREAT) 2.69 mg/dL 0.60-1.30 GFR NON BLACK (test code=GFRNONBLACK) 24 mL/min 70-80 GFR BLACK (test code=GFRBLACK) 29 mL/min 85-97 CALCIUM (test code=CA) 7.6 mg/dl 8.0-10.5 [id number] 06:10:00* Test Item Value Reference Range Comments HGBA1C% (test code=HGBA1C%) 5.5 %A1C 4.8-6.0 ESTIMATED AVERAGE GLUCOSE (test code=EAG) 111 MG/DL UR PROTEIN [id number] 01:50:00* Test Item Value Reference Range Comments UR PROTEIN RESULT (test code=PROTU) 27.9 MG/DL 0-15.0 UR SODIUM [id number] 01:50:00* Test Item Value Reference Range Comments UR SODIUM RANDOM (test code=VALERIY) 38 mmol/L 40-220 UR CREATININE [id number] 01:50:00* Test Item Value Reference Range Comments UR CREATININE RESULT (test code=CREATU) 155.10 MG/DL 30-125 URINALYSIS [id number] 01:45:00* Test Item Value Reference Range Comments UA COLOR (test code=COLU) DARK YELLOW UA APPEARANCE (test code=APPU) CLEAR UA GLUCOSE DIPSTICK (test code=DGLUU) NORMAL mg/dl NORMAL UA BILIRUBIN DIPSTICK (test code=BILU) 1 mg/dL mg/dL NEGATIVE UA KETONE DIPSTICK (test code=KETU) NEGATIVE mg/dl NEGATIVE UA SPECIFIC GRAVITY (test code=SGU) 1.020 1.000-1.030 UA BLOOD DIPSTICK (test code=YOKO) NEGATIVE Erick/micL NEGATIVE UA PH DIPSTICK (test code=EVELYN) 5.0 5.0-9.0 UA PROTEIN DIPSTICK (test code=PROU) 15 mg/dl mg/dl NEGATIVE UA UROBILINIOGEN DIPSTICK (test code=URO) NORMAL mg/dl NORMAL UA NITRITE DIPSTICK (test code=MAYTE) NEGATIVE NEGATIVE UA LEUKOCYTE ESTERASE DIPSTICK (test code=LEUU) NEGATIVE Kinza/micL NEGATIVE UA WBC (test code=WBCU) 0-3 WBC/HPF NONE UA RBC (test code=RBCU) 0-2 RBC/HPF 0-3 UA EPITHELIAL CELLS (test code=EPIU) 2-5 EPI/HPF 0-3 UA BACTERIA (test code=BACU) FEW NONE UA HYALINE CAST (test code=HYALU) 2-5 /LPF <1/LPF UA FINE GRANULAR CAST (test code=FINEU) 0-1 /LPF UA WHITE BLOOD CELL CAST (test code=WBCCU) 0-1 /LPF <1/LPF UA MUCUS (test code=MUCU) 1+ URINALYSIS [id number] 01:37:00* Test Item Value Reference Range Comments UA COLOR (test code=COLU) DARK YELLOW UA APPEARANCE (test code=APPU) CLEAR UA GLUCOSE DIPSTICK (test code=DGLUU) NORMAL mg/dl NORMAL UA BILIRUBIN DIPSTICK (test code=BILU) 1 mg/dL mg/dL NEGATIVE UA KETONE DIPSTICK (test code=KETU) NEGATIVE mg/dl NEGATIVE UA SPECIFIC GRAVITY (test code=SGU) 1.020 1.000-1.030 UA BLOOD DIPSTICK (test code=YOKO) NEGATIVE Erick/micL NEGATIVE UA PH DIPSTICK (test code=EVELYN) 5.0 5.0-9.0 UA PROTEIN DIPSTICK (test code=PROU) 15 mg/dl mg/dl NEGATIVE UA UROBILINIOGEN DIPSTICK (test code=URO) NORMAL mg/dl NORMAL UA NITRITE DIPSTICK (test code=MAYTE) NEGATIVE NEGATIVE UA LEUKOCYTE ESTERASE DIPSTICK (test code=LEUU) NEGATIVE Kinza/micL NEGATIVE UA WBC (test code=WBCU) WBC/HPF NONE UA RBC (test code=RBCU) RBC/HPF 0-3 UA EPITHELIAL CELLS (test code=EPIU) EPI/HPF 0-3 UA BACTERIA (test code=BACU) NONE - CT ABD PELVIS W/O [id number] 21:54:00 FAX: Chandrakant Joe MD [phone] [place]: St: [facility] FAX: Carlos Morin [phone] FAX: Adal Juradotom [phone] Name: JOHN HENRIQUEZ [facility] : 1940 Age/S: 78/M [address] [facility] Unit: [id number] Loc: [address] Phys: [place] [address] Acct: [id number] Dis Date: Status: ADM IN PHONE #: [phone] Exam Date: 03/02/20192034 FAX #: [phone] Reason: hydronephrosis EXAMS: CPT CODE: [id number] CT ABD PELVIS W/O CONT 18239 CT OF THE ABDO MEN AND PELVIS WITHOUT CONTRAST Location code:J9 CLI NICAL HISTORY:hydronephrosis COMPARISON: CT abdomen pelvis 12/11/19 15 TECHNIQUE:Multiple transaxial images of the abdomen and pelvis were obtained without contrast. Coronal reformatted images were obtained. FINDINGS: Abdomen Extensive lung base scarring is noted. The liver, spleen, pancreas, gallbladder, and bilateral adrenal glands are unremarkable. Bilateral renal atrophy is noted. No l eft hydronephrosis. A simple appearing 4 cm left renal cyst is noted. Marked right hydronephrosis is noted. Postsurgical scarring with surg ical clips and calcifications is noted extending along the right pelvic si dewall which appears to obstruct the distal right ureter. No dru l obstruction. Left and sigmoid colon diverticulosis without evidence of diverticulitis. The appendix is unremarkable. No mesenteric or re troperitoneal lymphadenopathy is found. There is no free intraperitoneal air or fluid. The visualized aorta is normal in caliber. The aort a is ectatic and calcified. FINDINGS: Pelvis V isualized intra-pelvic contents are within normal limits. The urinary stacy dder is collapsed and not well evaluated.. There is no free pelvic fluid. No acute fracture. IMPRESSION: Marked ri ght hydronephrosis with postsurgical scarring in the right pelvic sidewa ll noted causing the obstruction. PAGE 1 Signed Repor t (CONTINUED) FAX: Chandrakant Joe MD [phone] [place]: St: [facility] FAX: Carlos Morin [phone] FAX: Unique Guzman [phone] Name: JOHN HENRIQUEZ [facility] : 1940 Age/S: 78/M [address] [facility] Unit: [id number] Loc: [address] Phys: [place] [address] Acct: [id number] Dis Date: Status: ADM IN PHONE #: [phone] Exam Date: 03/02/20192034 FAX #: [phone] Reason: hydronephrosis EXAMS: CPT CODE: [id number] CT ABD PELVIS W/O CONT 70888 <Continued> at 2044 Reported and signed by: Calos Quesada M.D. CC: Chandrakant Merrill MD; Carlos Liao MD; Leeann Jurado MD Technologist: ARNOLD REBOLLEDO Trnscrd Dt/Tm: 03/02/2019 (2159) [email or web address] Orig Print D/T: S: 03/03/2019 (5556 PAGE 2 Signed Report - XR CHEST 1 [id number] 16:46:00 FAX: Chandrakant Joe MD [phone] [place]: St: [facility] FAX: Unique Guzman [phone] Name: JOHN HENRIQUEZ [facility] : 1940 Age/S: 78/M [address] [facility] Unit #: [id number] Loc: [address] [place] [address] Phys: [place] [address] Acct: [id number] Dis Date: Status: ADM IN PHONE #: [phone] Exam Date: 03/02/2019 163 FAX #: [phone] Reason: leucocytosis to rule out PNA EXAMS: CPT CODE: [id number] XR CHEST 1 V 17793 Location: T18 CHEST X-RAY: Portable AP frontal pro jection, one view, 03/02/19 CLINICAL HISTORY: Leukocytosis COMPARISON EXAMS: 12/23/18 chest x-ray exam FINDINGS: The patient is status post sternotomy. Heart size borderline. No definite pneumonia is seen with minimal chronic appearing interstitial de nsity at the lung bases. No active CHF or definite evolving process. No e volving pleural based finding. IMPRESSION: N o acute finding or pneumonia clearly seen at 9635 Reported and signed by: Mary Khoury M.D. CC: Chandrakatn Merrill MD; Leeann Jurado MD Technologist: MANUEL GOULD Trnscrd Date/Time/By: 03/02/2019 (3362) : By: jacques [email or web address] PAGE 1 Signed Report FAX: Chandrakant Joe MD [phone] [place]: St: [facility] FAX: Unique Guzman [phone] Name: LISSETTE HENRIQUEZ [facility] : 1940 Age/S: 78/M [address] [facility] Unit #: [id number] Loc: [address] Phys: Leeann Jurado MD 77 591 Acct: [id number] Dis Date: Statu s: ADM IN PHONE #: [phone] Exam Date: 03/02/2019 1637 FAX #: [phone] Reason: leucocy tosis to rule out PNA EXAMS: CPT CODE: [id number] XR CHEST 1 V 45055 <Continued> Orig Print D/T: S: 03/02/2019 (1703) PAGE 2 Signed Report - XR CHEST 1 [id number] 16:46:00 FAX: Chandrakant Joe MD [phone] [place]: St: [facility] FAX: Unique Guzman [phone] Name: JOHN HENRIQUEZ [facility] : 1940 Age/S: 78/M [address] [facility] Unit #: [id number] Loc: [address] [place], [place]: [place] [address] Acct: [id number] Dis Date: Status: ADM IN PHONE #: [phone] Exam Date: 03/02/2019 1637 FAX #: [phone] Reason: leucocytosis to rule out PNA EXAMS: CPT CODE: [id number] XR CHEST 1 V 23857 Location: T18 CHEST X-RAY: Portable AP frontal projection, one view, 03/02/19 CLINICAL HISTORY: Leukocytosis COMPARISON EXAMS: 12/23/18 chest x-ray exam FINDINGS: The patient is status post sternotomy. Heart size borderline. No definite pneumonia is seen with minimal chronic appearing interstitial density at the lung bases. No active CHF or definite evolving process. No evolving pleural based finding. IMPRESSION: No acute finding or pneumonia clearly seen at 7372 Reported and signed by: Mary Khoury M.D. CC: Chandrakant Merrill MD; Leeann Jurado MD Technologist: MANUEL GOULD [facility] Date/Time/By: 03/02/2019 (1584) : By: jacques [email or web address] PAGE 1 Signed Report FAX: Chandrakant Joe MD [phone] [place]: St: [facility] FAX: Unique Guzman [phone] Name: LISSETTE HENRIQUEZ [facility] : 1940 Age/S: 78/M [address] [facility] Unit #: [id number] Loc: [address] [place], [place] Phys: Leeann Jurado MD 77 591 Acct: [id number] Dis Date: Statu s: ADM IN PHONE #: [phone] Exam Date: 03/02/2019 1637 FAX #: [phone] Reason: leucocy tosis to rule out PNA EXAMS: CPT CODE: [id number] XR CHEST 1 V 86941 <Continued> Orig Print D/T: S: 03/02/2019 (3663) PAGE 2 Signed Report - US RETRO [id number] 16:43:00 FAX: Chandrakant Joe MD [phone] [place]: St: ADM FAX: Unique Guzman [phone] Name: MARTINEZJIMENEZJOHN JOE [facility] : 1940 Age/S: 78/M [address] [facility] Unit #: [id number] Loc: [address] [place] [address] [place]: [place] [address] Acct: [id number] Dis Date: Status: ADM IN PHONE #: [phone] Exam Date: 03/02/2019 1626 FAX #: [phone] Reason: ALICE EXAMS: CPT CODE: [id number] US RETRO LTD 27711 ULTRASOUND: - US RETRO LTD History: Acute renal insufficiency. Comparison: Previous CT abdomen and pelvis from December 10, 2014. B-mode/Prasad scale imaging with color Doppler perfusion imaging and spectral analysis was performed. The right kidney is 12.5 x 7.9 x 8.3 cm with prominent hydronephrosis occurring. Perfusion pattern on Doppler appears to be intact. Resistive indicate measurement of 0.78 is elevated. Cortical thickness at 1.2 cm maintained. Increased echogenicity found. The left kidney is 12.2 x 7 x 7.1 cm with more normal cortical pattern. Upper pole cyst at 3.6 cm, appearing to be simple. Resistive index measurement at 0.72, abnormal as well The bladder has a volume of 134 mL. The patient could not void for r esidual measurement. Impression: Severe right hydronephrosis see n, nonspecific. CT follow-up may be needed for further evaluation. Increased resistive index measurement suggests chronic medical sheri al disease. Renal size maintained. Cortical thickness intact. Location: U 19 at 7612 Reported and signed by: Gabino Montejo M.D. CC: Chandrakant Merrill MD; Leeann Jurado MD Technologist: JOSÉ MIGUEL RAMSEY Trnscrd Date/Time/By: 03/02/2019 (4711) : By: [facility] PAGE 1 Signed Report FAX: Chandrakant Joe MD [phone] [place]: St: [facility] FAX: Unique Guzman [phone] -------- Name: JOHN HENRIQUEZ [facility] : 1939 Age/S: 78/M [address] [facility] Unit #: [id number] Loc: [address] [place], [place]: [place] [address] Acct: [id number] Dis Date: Status: ADM IN PHONE #: [phone] Exam Date: 03/02/2019 1626 FAX #: [phone] Reason: ALICE EXAMS: CPT CODE: [id number] US RETRO LTD 41330 <Continued> Orig Print D/T: S: 03/02/2019 (0897) PAGE 2 Signed Report CBC W/AUTO DIFF 2019-03-02 12:47:00* Test Item Value Reference Range Comments WHITE BLOOD CELL (test code=WBC) 15.9 K/mm3 4.5-11.0 RED BLOOD CELL (test code=RBC) 2.45 M/mm3 4.40-5.90 HEMOGLOBIN (test code=HGB) 8.3 gm/dL 13.0-17.0 HEMATOCRIT (test code=HCT) 26.6 % 36.0-48.0 MEAN CELL VOLUME (test code=MCV) 108.6 UM3 80.0-94.0 MEAN CELL HGB (test code=MCH) 33.9 UUG 25.5-32.5 MEAN CELL HGB CONCETRATION (test code=MCHC) 31.2 gm/dL 29.0-35.5 RED CELL DISTRIBUTION WIDTH (test code=RDW) 22.7 % 11.5-15.0 RED CELL DISTRIBUTION WIDTH SD (test code=RDW-SD) 85.1 fL 34.8-50.2 PLATELET COUNT (test code=PLT) 148 K/mm3 150-400 MEAN PLATELET VOLUME (test code=MPV) 10.6 fl 7.4-10.4 NEUTROPHIL % (test code=NT%) 81.7 % 49.0-76.0 IMMATURE GRANULOCYTE % (test code=IG%) 1.6 % 0.0-0.4 LYMPHOCYTE % (test code=LY%) 11.7 % 23.0-38.0 MONOCYTE % (test code=MO%) 4.6 % 1.0-10.0 EOSINOPHIL % (test code=EO%) 0.1 % 1.0-5.0 BASOPHIL % (test code=BA%) 0.3 % 0.0-1.0 NEUTROPHIL # (test code=NT#) 13.0 K/mm3 2.4-6.3 IMMATURE GRANULOCYTE # (test code=IG#) 0.25 x10 3/uL 0.00-0.07 LYMPHOCYTE # (test code=LY#) 1.9 K/mm3 1.2-4.0 MONOCYTE # (test code=MO#) 0.7 K/mm3 0.0-0.6 EOSINOPHIL # (test code=EO#) 0.0 K/MM3 0.0-0.7 BASOPHIL # (test code=BA#) 0.1 K/mm3 0.0-0.2 HGB [id number] 03:17:00* Test Item Value Reference Range Comments HEMOGLOBIN (test code=HGB) 7.2 gm/dL 13.0-17.0 HEMATOCRIT (test code=HCT) 24.0 % 36.0-48.0 CBC W/AUTO [id number] 21:01:00* Test Item Value Reference Range Comments WHITE BLOOD CELL (test code=WBC) 14.5 K/mm3 4.5-11.0 RED BLOOD CELL (test code=RBC) 2.28 M/mm3 4.40-5.90 HEMOGLOBIN (test code=HGB) 8.2 gm/dL 13.0-17.0 HEMATOCRIT (test code=HCT) 27.7 % 36.0-48.0 MEAN CELL VOLUME (test code=MCV) 121.5 UM3 80.0-94.0 MEAN CELL HGB (test code=MCH) 36.0 UUG 25.5-32.5 MEAN CELL HGB CONCETRATION (test code=MCHC) 29.6 gm/dL 29.0-35.5 RED CELL DISTRIBUTION WIDTH (test code=RDW) 19.8 % 11.5-15.0 RED CELL DISTRIBUTION WIDTH SD (test code=RDW-SD) 88.6 fL 34.8-50.2 PLATELET COUNT (test code=PLT) 198 K/mm3 150-400 MEAN PLATELET VOLUME (test code=MPV) 10.4 fl 7.4-10.4 NEUTROPHIL % (test code=NT%) 89.9 % 49.0-76.0 IMMATURE GRANULOCYTE % (test code=IG%) 1.0 % 0.0-0.4 LYMPHOCYTE % (test code=LY%) 5.6 % 23.0-38.0 MONOCYTE % (test code=MO%) 3.3 % 1.0-10.0 EOSINOPHIL % (test code=EO%) 0.1 % 1.0-5.0 BASOPHIL % (test code=BA%) 0.1 % 0.0-1.0 NEUTROPHIL # (test code=NT#) 13.0 K/mm3 2.4-6.3 IMMATURE GRANULOCYTE # (test code=IG#) 0.14 x10 3/uL 0.00-0.07 LYMPHOCYTE # (test code=LY#) 0.8 K/mm3 1.2-4.0 MONOCYTE # (test code=MO#) 0.5 K/mm3 0.0-0.6 EOSINOPHIL # (test code=EO#) 0.0 K/MM3 0.0-0.7 BASOPHIL # (test code=BA#) 0.0 K/mm3 0.0-0.2 MACROCYTOSIS (test code=MACR) 1+ COMPREHENSIVE METABOLIC [id number] 20:55:00* Test Item Value Reference Range Comments SODIUM (test code=NA) 142 mmol/l 134.0-147.0 POTASSIUM (test code=K) 4.6 mmol/L 3.6-5.2 CHLORIDE (test code=CL) 107 mmol/l 98.0-107.0 CARBON DIOXIDE (test code=CO2) 23.0 mmol/l 21.0-33.0 ANION GAP (test code=GAP) 16.6 0-20 GLUCOSE (test code=GLU) 152 mg/dl 70.0-110.0 BLOOD UREA NITROGEN (test code=BUN) 52 mg/dl 7.0-18.0 CREATININE (test code=CREAT) 2.41 mg/dL 0.60-1.30 GFR NON BLACK (test code=GFRNONBLACK) 28 mL/min 70-80 GFR BLACK (test code=GFRBLACK) 33 mL/min 85-97 TOTAL PROTEIN (test code=PROT) 6.4 gm/dL 6.4-8.2 ALBUMIN (test code=ALB) 2.8 gm/dl 3.2-4.7 CALCIUM (test code=CA) 8.4 mg/dl 8.0-10.5 BILIRUBIN TOTAL (test code=BILT) 0.3 mg/dl 0.0-1.0 SGOT/AST (test code=AST) 19 Units/L 15.0-37.0 SGPT/ALT (test code=ALT) 29 Units/L 12.0-78.0 ALKALINE PHOSPHATASE TOTAL (test code=ALKP) 44 Units/L 50.0-136.0 PROTHROMBIN [id number] 20:49:00* Test Item Value Reference Range Comments PROTHROMBIN TIME PATIENT (test code=PTP) 17.4 SECONDS 9.9-12.8 INTERNATIONAL NORMAL RATIO (test code=INR) 1.5 0.89-1.14 THE INR IS TO BE USED ONLY FOR MONITORING ORAL ANTICOAGULANTTHERAPY. THE FOLLOWING ARE SUGGESTED RANGES FROM THEAMERICAN [employer]LE[employer] OF [employer]ICIANS:INDICATION INR VALUEPROPHYLAXIS OF VENOUS THROMBOSIS (ORTHOPEDIC SURGERY) 2.0 - 3.0PROPHYLAXIS OF VENOUS THROMBOSIS (OTHER THAN HIGH-RISK SURGERY) 2.0 - 3.0TREATMENT OF DEEP VEIN THROMBOSIS OR PULMONARY EMBOLISM 2.0 - 3.0PREVENTION OF SYSTEMIC EMBOLISM TISSUE HEART VALVES 2.0 - 3.0 ACUTE MYOCARDIAL INFARCTION (TO PREVENT SYSTEMIC EMBOLISM) 2.0 - 3.0 ACUTE MYOCARDIAL INFARCTION (TO PREVENT RECURRENT INFARCT) 2.5 - 3.0 VALVULAR HEART DISEASE 2.0 - 3.0 ATRIAL FIBRILATION 2.0 - 3.0BILEAFLET MECHANICAL VALVE IN AORTIC POSITION 2.0 - 3.0MECHANICAL PROSTHETIC VALVES (HIGH RISK) 2.5 - 3.5PRESENCE OF LUPUS ANTICOAGULANT OR ANTIPHOSPHOLIPID ANTIBODIES 2.5 - 3.5 COMPREHENSIVE METABOLIC [id number] 20:48:00* Test Item Value Reference Range Comments SODIUM (test code=NA) 142 mmol/l 134.0-147.0 POTASSIUM (test code=K) 4.6 mmol/L 3.6-5.2 CHLORIDE (test code=CL) 107 mmol/l 98.0-107.0 CARBON DIOXIDE (test code=CO2) 23.0 mmol/l 21.0-33.0 ANION GAP (test code=GAP) 16.6 0-20 GLUCOSE (test code=GLU) mg/dl 70.0-110.0 BLOOD UREA NITROGEN (test code=BUN) mg/dl 7.0-18.0 CREATININE (test code=CREAT) mg/dL 0.60-1.30 GFR NON BLACK (test code=GFRNONBLACK) mL/min 70-80 GFR BLACK (test code=GFRBLACK) mL/min 85-97 TOTAL PROTEIN (test code=PROT) gm/dL 6.4-8.2 ALBUMIN (test code=ALB) gm/dl 3.2-4.7 CALCIUM (test code=CA) mg/dl 8.0-10.5 BILIRUBIN TOTAL (test code=BILT) mg/dl 0.0-1.0 SGOT/AST (test code=AST) Units/L 15.0-37.0 SGPT/ALT (test code=ALT) Units/L 12.0-78.0 ALKALINE PHOSPHATASE TOTAL (test code=ALKP) Units/L 50.0-136.0 CBC W/AUTO [id number] 20:44:00* Test Item Value Reference Range Comments WHITE BLOOD CELL (test code=WBC) 14.5 K/mm3 4.5-11.0 RED BLOOD CELL (test code=RBC) 2.28 M/mm3 4.40-5.90 HEMOGLOBIN (test code=HGB) 8.2 gm/dL 13.0-17.0 HEMATOCRIT (test code=HCT) 27.7 % 36.0-48.0 MEAN CELL VOLUME (test code=MCV) 121.5 UM3 80.0-94.0 MEAN CELL HGB (test code=MCH) 36.0 UUG 25.5-32.5 MEAN CELL HGB CONCETRATION (test code=MCHC) 29.6 gm/dL 29.0-35.5 RED CELL DISTRIBUTION WIDTH (test code=RDW) 19.8 % 11.5-15.0 RED CELL DISTRIBUTION WIDTH SD (test code=RDW-SD) 88.6 fL 34.8-50.2 PLATELET COUNT (test code=PLT) 198 K/mm3 150-400 MEAN PLATELET VOLUME (test code=MPV) 10.4 fl 7.4-10.4 NEUTROPHIL % (test code=NT%) 89.9 % 49.0-76.0 IMMATURE GRANULOCYTE % (test code=IG%) 1.0 % 0.0-0.4 LYMPHOCYTE % (test code=LY%) 5.6 % 23.0-38.0 MONOCYTE % (test code=MO%) 3.3 % 1.0-10.0 EOSINOPHIL % (test code=EO%) 0.1 % 1.0-5.0 BASOPHIL % (test code=BA%) 0.1 % 0.0-1.0 NEUTROPHIL # (test code=NT#) 13.0 K/mm3 2.4-6.3 IMMATURE GRANULOCYTE # (test code=IG#) 0.14 x10 3/uL 0.00-0.07 LYMPHOCYTE # (test code=LY#) 0.8 K/mm3 1.2-4.0 MONOCYTE # (test code=MO#) 0.5 K/mm3 0.0-0.6 EOSINOPHIL # (test code=EO#) 0.0 K/MM3 0.0-0.7 BASOPHIL # (test code=BA#) 0.0 K/mm3 0.0-0.2 GASTRIC,[id number] 12:04:00 RUN DATE: 12/27/18 [facility] [place] [facility] PAGE 1 RUN TIME: 1204 Specimen Inqui ry RUN USER: INTERFACE PATIENT: JOHN HENRIQUEZ ACCT #: [id number] LOC: KARI U #: [id number] AGE/SX: 78/M ROOM: [facility] RE12/23/18COURTNEY DR: Sa matt Jurado : 36 BED: 1 DIS: 12/26/18 STATUS: DIS IN TLOC: SPEC #: [id number] RECD: 12/24/18-1104 STATUS: TANVIR REFrance #: [id number] KIRSTIN: 12/24/18- SUBM DR: Sa matt Jurado MD ENTERED: 12/24/18 SP TYPE: GASTRIC BX OTHR DR: Salomon R eferred Chandrakant Merrill MD, Advitya MD Patel, Dipsu Dilip MDORDERED: REQUEST COPIES TO: Self Referred Chandrakant Merrill MD [address] [place] [phone] Roney Etienne MD [facility] [address] [place] [phone] OTHER PHONE [phone] (CELL) Saranya Kirby MD [address] [place] [phone] [email or web address]) Leeann Jurado MD [address] [place] [address] [phone] [email or web address] ICD CODES: 535.5 - PROCEDURES: REQUEST () TISSUES: GASTRIC MUCOUS MEMBRANE - ANTRUM BX CLIN ICAL HISTORY Anemia CONTINUED ON NEXT PAG E RUN DATE: 12/27/18 [facility] PAGE 2 RUN TIME: 1204 Specimen Inquiry RUN USER: INTERFACE SPEC #: [id number] PATIENT: JOHN SIMMONS #[id number] (Continued) FINAL GREGG GNOSIS STOMACH, ANTRUM, BIOPSY: ANTRAL-TYPE MUCOSA WITH MILD CHRONIC, ACTIVE GASTRITIS. NEGATIVE FOR INTESTINAL METAPLASIA OR DYSPLASIA. APPEARS NEGATIVE FOR HELICOBACTER ORGANISMS (GIEMSA STAIN WITH GOOD CONTROL). PENDING IMMUNOSTAIN. CPT CODE: 45948, 79222, 8834 2 MACROSCOPIC Specimen in formalin labeled antrum biopsy consists of t wo whitish fragments 1 to 2 mm. One cassette. MICROSCOPIC SEE DIAGNOS IS Signed SIGNATURE ON FILE PedroosmarMaureen 12/27/18 1204 END OF REPORT GASTRIC,[id number] 12:04:00 RUN DATE: 12/29/18 [facility] PAGE 1 RUN TIME: 1003 Specimen Inqui ry RUN USER: INTERFACE PATIENT: JOHN HENRIQUEZ ACCT #: [id number] LOC: KARI U #: [id number] AGE/SX: 78/M ROOM: [facility] RE12/23/18REG DR: Sa matt Jurado : 36 BED: 1 DIS: 12/26/18 STATUS: DIS IN TLOC: SPEC #: [id number] RECD: 12/24/18 STATUS: TANVIR REQ #: [id number] KIRSTIN: 12/24/18- SUBM DR: Sa matt Jurado MD ENTERED: 12/24/18 SP TYPE: GASTRIC BX OTHR DR: Self R eferrChandrakant Joe MD, Advitya MD Patel, Dipsu Dilip MDORDERED: SPEC STAIN [place], GM LEVEL 4, IMMUNOHISTOCHEM, REQU EST COPIES TO: Self Referred Chandrakant Merrill MD [address] [place], [place] [phone] Roney Etienne MD [address] [place] [address] [address] [place], [place] [address] [phone] OTHER PHONE [phone] (CELL) Saranya Kirby MD [address] [place] [phone] [email or web address] Leeann Jurado MD [address] [place] [address] [email or web address] ICD CODES: 535.5 - PROCEDURES: SPEC STAIN K[place] (12/27/18) GM LEVEL 4 (12/27/18) REQUEST () TISSUES: GASTRIC MUCOUS MEMBRANE - ANTRUM BX CONTINUED ON NEXT PAGE RUN DATE: [facility] PAGE 2 RUN TIME: 1003 Specimen Inquiry RUN US ER: INTERFACE -------- ----SPEC #: [id number] PATIENT: JOHN HENRIQUEZ JULIO #[id number] (Continued) ADDENDUM FINDINGS Addendum #1 Entered: 12/29/180933 Immunohistochemical stain for H. pylori is performed at [facility] with appropriate control and appears negative. Addendum Signed SIGNATURE ON PARAS [facility] 12/29/18 1002 CLINICAL HISTORY Anemia FINAL DIAGNOSIS STOMACH, ANTRUM, BIOPSY: ANTRAL-TYPE MUCOSA WITH MILD CHRONIC, ACTIVE GASTRITIS. NEGATIVE FOR INTESTINAL METAPLASIA OR DYSPLASIA. APPEARS NEGATIVE FOR H ELICOBACTER ORGANISMS (GIEMSA STAIN WITH GOOD CONTROL). PEND ING IMMUNOSTAIN. CPT CODE: 30595, 20023, 97958 MACROSCOPIC Spe cimen in formalin labeled antrum biopsy consists of two whitish fragments 1 to 2 mm. One cassette. MICROSCOPIC SEE DIAGNOSIS Signed SIGN ATURE ON PARAS [facility] 12/27/18 1204 -------- ---- END OF REPORT CBC W/AUTO [id number] 06:54:00* Test Item Value Reference Range Comments WHITE BLOOD CELL (test code=WBC) 9.9 K/mm3 4.5-11.0 RED BLOOD CELL (test code=RBC) 2.68 M/mm3 4.40-5.90 HEMOGLOBIN (test code=HGB) 8.5 gm/dL 13.0-17.0 HEMATOCRIT (test code=HCT) 29.1 % 36.0-48.0 MEAN CELL VOLUME (test code=MCV) 108.6 UM3 80.0-94.0 MEAN CELL HGB (test code=MCH) 31.7 UUG 25.5-32.5 MEAN CELL HGB CONCETRATION (test code=MCHC) 29.2 gm/dL 29.0-35.5 RED CELL DISTRIBUTION WIDTH (test code=RDW) 27.0 % 11.5-15.0 RED CELL DISTRIBUTION WIDTH SD (test code=RDW-SD) 106.7 fL 34.8-50.2 PLATELET COUNT (test code=PLT) 317 K/mm3 150-400 MEAN PLATELET VOLUME (test code=MPV) 8.8 fl 7.4-10.4 NEUTROPHIL % (test code=NT%) 91.0 % 49.0-76.0 IMMATURE GRANULOCYTE % (test code=IG%) 0.6 % 0.0-0.4 LYMPHOCYTE % (test code=LY%) 6.0 % 23.0-38.0 MONOCYTE % (test code=MO%) 2.3 % 1.0-10.0 EOSINOPHIL % (test code=EO%) 0.0 % 1.0-5.0 BASOPHIL % (test code=BA%) 0.1 % 0.0-1.0 NEUTROPHIL # (test code=NT#) 9.0 K/mm3 2.4-6.3 IMMATURE GRANULOCYTE # (test code=IG#) 0.06 x10 3/uL 0.00-0.07 LYMPHOCYTE # (test code=LY#) 0.6 K/mm3 1.2-4.0 MONOCYTE # (test code=MO#) 0.2 K/mm3 0.0-0.6 EOSINOPHIL # (test code=EO#) 0.0 K/MM3 0.0-0.7 BASOPHIL # (test code=BA#) 0.0 K/mm3 0.0-0.2 COMPREHENSIVE METABOLIC [id number] 06:46:00* Test Item Value Reference Range Comments SODIUM (test code=NA) 137 mmol/l 134.0-147.0 POTASSIUM (test code=K) 4.9 mmol/L 3.6-5.2 CHLORIDE (test code=CL) 100 mmol/l 98.0-107.0 CARBON DIOXIDE (test code=CO2) 27.9 mmol/l 21.0-33.0 ANION GAP (test code=GAP) 14.0 0-20 GLUCOSE (test code=GLU) 127 mg/dl 70.0-110.0 BLOOD UREA NITROGEN (test code=BUN) 52 mg/dl 7.0-18.0 CREATININE (test code=CREAT) 1.90 mg/dL 0.60-1.30 GFR NON BLACK (test code=GFRNONBLACK) 36 mL/min 70-80 GFR BLACK (test code=GFRBLACK) 44 mL/min 85-97 TOTAL PROTEIN (test code=PROT) 7.5 gm/dL 6.4-8.2 ALBUMIN (test code=ALB) 3.1 gm/dl 3.2-4.7 CALCIUM (test code=CA) 9.2 mg/dl 8.0-10.5 BILIRUBIN TOTAL (test code=BILT) 0.5 mg/dl 0.0-1.0 SGOT/AST (test code=AST) 15 Units/L 15.0-37.0 SGPT/ALT (test code=ALT) 31 Units/L 12.0-78.0 ALKALINE PHOSPHATASE TOTAL (test code=ALKP) 39 Units/L 50.0-136.0 [id number] 06:46:00* Test Item Value Reference Range Comments MAGNESIUM (test code=MAG) 2.3 mg/dl 1.8-2.4 COMPREHENSIVE METABOLIC [id number] 11:04:00* Test Item Value Reference Range Comments SODIUM (test code=NA) 134 mmol/l 134.0-147.0 POTASSIUM (test code=K) 4.2 mmol/L 3.6-5.2 CHLORIDE (test code=CL) 101 mmol/l 98.0-107.0 CARBON DIOXIDE (test code=CO2) 24.5 mmol/l 21.0-33.0 ANION GAP (test code=GAP) 12.7 0-20 GLUCOSE (test code=GLU) 169 mg/dl 70.0-110.0 BLOOD UREA NITROGEN (test code=BUN) 38 mg/dl 7.0-18.0 CREATININE (test code=CREAT) 1.87 mg/dL 0.60-1.30 GFR NON BLACK (test code=GFRNONBLACK) 37 mL/min 70-80 GFR BLACK (test code=GFRBLACK) 45 mL/min 85-97 TOTAL PROTEIN (test code=PROT) 6.9 gm/dL 6.4-8.2 ALBUMIN (test code=ALB) 2.8 gm/dl 3.2-4.7 CALCIUM (test code=CA) 8.4 mg/dl 8.0-10.5 BILIRUBIN TOTAL (test code=BILT) 0.4 mg/dl 0.0-1.0 SGOT/AST (test code=AST) 26 Units/L 15.0-37.0 SGPT/ALT (test code=ALT) 28 Units/L 12.0-78.0 ALKALINE PHOSPHATASE TOTAL (test code=ALKP) 39 Units/L 50.0-136.0 CBC W/AUTO [id number] 10:56:00* Test Item Value Reference Range Comments WHITE BLOOD CELL (test code=WBC) 11.5 K/mm3 4.5-11.0 RED BLOOD CELL (test code=RBC) 2.60 M/mm3 4.40-5.90 HEMOGLOBIN (test code=HGB) 8.2 gm/dL 13.0-17.0 HEMATOCRIT (test code=HCT) 28.9 % 36.0-48.0 MEAN CELL VOLUME (test code=MCV) 111.2 UM3 80.0-94.0 MEAN CELL HGB (test code=MCH) 31.5 UUG 25.5-32.5 MEAN CELL HGB CONCETRATION (test code=MCHC) 28.4 gm/dL 29.0-35.5 RED CELL DISTRIBUTION WIDTH (test code=RDW) 27.6 % 11.5-15.0 RED CELL DISTRIBUTION WIDTH SD (test code=RDW-SD) 111.6 fL 34.8-50.2 PLATELET COUNT (test code=PLT) 256 K/mm3 150-400 MEAN PLATELET VOLUME (test code=MPV) 9.4 fl 7.4-10.4 NEUTROPHIL % (test code=NT%) 91.4 % 49.0-76.0 IMMATURE GRANULOCYTE % (test code=IG%) 0.6 % 0.0-0.4 LYMPHOCYTE % (test code=LY%) 3.9 % 23.0-38.0 MONOCYTE % (test code=MO%) 3.6 % 1.0-10.0 EOSINOPHIL % (test code=EO%) 0.2 % 1.0-5.0 BASOPHIL % (test code=BA%) 0.3 % 0.0-1.0 NEUTROPHIL # (test code=NT#) 10.5 K/mm3 2.4-6.3 IMMATURE GRANULOCYTE # (test code=IG#) 0.07 x10 3/uL 0.00-0.07 LYMPHOCYTE # (test code=LY#) 0.5 K/mm3 1.2-4.0 MONOCYTE # (test code=MO#) 0.4 K/mm3 0.0-0.6 EOSINOPHIL # (test code=EO#) 0.0 K/MM3 0.0-0.7 BASOPHIL # (test code=BA#) 0.0 K/mm3 0.0-0.2 [id number] 14:17:00* Test Item Value Reference Range Comments HGBA1C% (test code=HGBA1C%) 4.5 %A1C 4.8-6.0 ESTIMATED AVERAGE GLUCOSE (test code=EAG) 82 MG/DL FE W/TOTAL IRON BINDING CAP.2018-12-24 10:05:00* Test Item Value Reference Range Comments SERUM IRON (test code=IRON) 27 mcg/dl 35.0-150.0 Patients treated with metal- binding drugs such asdeferoxamine may have depressed iron values due to ironchelation. Clinical impact would be mitigated byconsideration of clinical symptoms. TOTAL IRON BINDING CAPACITY (test code=TIBC) 238 mcg/dl 260.0-445.0 Result is in microgram per deciliter IRON SATURATION (test code=FESAT) 11 % 15-50 [id number] 10:05:00* Test Item Value Reference Range Comments TRANSFERRIN (test code=TRANSF) 195 mg/dL 200-370 VITAMIN [id number] 10:05:00* Test Item Value Reference Range Comments VITAMIN B12 (test code=VITB12) 252 pg/mL 193-986 FOLIC [id number] 10:05:00* Test Item Value Reference Range Comments FOLIC ACID (test code=FOL) 9.5 ng/mL 3.1-17.5 [id number] 10:05:00* Test Item Value Reference Range Comments FERRITIN (test code=TELMA) 107 ng/mL 23.9-336.2 CARDIAC ENZYMES [id number] 01:58:00* Test Item Value Reference Range Comments CREATINE KINASE (CK) (test code=CK) 32 Units/L 39-308 TROPONIN-I (test code=TROPI) 0.02 NG/ML 0.00-0.06 REFERENCE RANGE TROPONIN I HEALTHY INDIVIDUALS: <0.06 ng/mL R/O ISCHEMIA: 0.07 - 0.60 ng/mL CUT-OFF RANGE FOR AMI: 0.60 - 1.5 ng/mL : Specimen comments: Please see the initial specimen in the lab as the first draw on this series Comments to [facility]: Please draw the 2nd specimen q4hrs after the first and the 3rd 8hrs after the first.Specime n comments: drawn Q4hrs then [id number] to [facility]: Patient is currently in the ED waiting on a bedCOMPREHENSIVE METABOLIC [id number] 01:58:00* Test Item Value Reference Range Comments SODIUM (test code=NA) 140 mmol/l 134.0-147.0 POTASSIUM (test code=K) 4.4 mmol/L 3.6-5.2 CHLORIDE (test code=CL) 105 mmol/l 98.0-107.0 CARBON DIOXIDE (test code=CO2) 26.1 mmol/l 21.0-33.0 ANION GAP (test code=GAP) 13.3 0-20 GLUCOSE (test code=GLU) 92 mg/dl 70.0-110.0 BLOOD UREA NITROGEN (test code=BUN) 39 mg/dl 7.0-18.0 CREATININE (test code=CREAT) 1.89 mg/dL 0.60-1.30 GFR NON BLACK (test code=GFRNONBLACK) 37 mL/min 70-80 GFR BLACK (test code=GFRBLACK) 44 mL/min 85-97 TOTAL PROTEIN (test code=PROT) 6.5 gm/dL 6.4-8.2 ALBUMIN (test code=ALB) 2.7 gm/dl 3.2-4.7 CALCIUM (test code=CA) 8.6 mg/dl 8.0-10.5 BILIRUBIN TOTAL (test code=BILT) 0.4 mg/dl 0.0-1.0 SGOT/AST (test code=AST) 22 Units/L 15.0-37.0 SGPT/ALT (test code=ALT) 33 Units/L 12.0-78.0 ALKALINE PHOSPHATASE TOTAL (test code=ALKP) 37 Units/L 50.0-136.0 Comments to [facility]: Patient is currently in the ED waiting on a bedLIPID PROFILE (CORONARY RISK)2018-12-24 01:58:00* Test Item Value Reference Range Comments TRIGLYCERIDES (test code=TRIG) 53 mg/dl 40.0-150.0 CHOLESTEROL (test code=CHOL) 106 mg/dl 0.0-200.0 CHOLESTEROL/HDL RATIO (test code=CHOLHDL) 4.1 RATIO HDL CHOLESTEROL (test code=HDL) 26 mg/dl 30.0-60.0 LIPOPROTEIN LDL (test code=LDL) 78 mg/dl 70-130 Comments to [facility]: Patient is currently in the ED waiting on a [id number] 01:58:00* Test Item Value Reference Range Comments MAGNESIUM (test code=MAG) 2.3 mg/dl 1.8-2.4 Comments to [facility]: Patient is currently in the ED waiting on a bedCBC W/AUTO [id number] 01:57:00* Test Item Value Reference Range Comments WHITE BLOOD CELL (test code=WBC) 9.0 K/mm3 4.5-11.0 RED BLOOD CELL (test code=RBC) 2.07 M/mm3 4.40-5.90 HEMOGLOBIN (test code=HGB) 6.8 gm/dL 13.0-17.0 HEMATOCRIT (test code=HCT) 23.1 % 36.0-48.0 MEAN CELL VOLUME (test code=MCV) 111.6 UM3 80.0-94.0 MEAN CELL HGB (test code=MCH) 32.9 UUG 25.5-32.5 MEAN CELL HGB CONCETRATION (test code=MCHC) 29.4 gm/dL 29.0-35.5 RED CELL DISTRIBUTION WIDTH (test code=RDW) 28.3 % 11.5-15.0 RED CELL DISTRIBUTION WIDTH SD (test code=RDW-SD) 115.1 fL 34.8-50.2 PLATELET COUNT (test code=PLT) 263 K/mm3 150-400 MEAN PLATELET VOLUME (test code=MPV) 8.5 fl 7.4-10.4 NEUTROPHIL % (test code=NT%) 84.7 % 49.0-76.0 IMMATURE GRANULOCYTE % (test code=IG%) 0.3 % 0.0-0.4 LYMPHOCYTE % (test code=LY%) 10.4 % 23.0-38.0 MONOCYTE % (test code=MO%) 3.9 % 1.0-10.0 EOSINOPHIL % (test code=EO%) 0.3 % 1.0-5.0 BASOPHIL % (test code=BA%) 0.4 % 0.0-1.0 NEUTROPHIL # (test code=NT#) 7.7 K/mm3 2.4-6.3 IMMATURE GRANULOCYTE # (test code=IG#) 0.03 x10 3/uL 0.00-0.07 LYMPHOCYTE # (test code=LY#) 0.9 K/mm3 1.2-4.0 MONOCYTE # (test code=MO#) 0.4 K/mm3 0.0-0.6 EOSINOPHIL # (test code=EO#) 0.0 K/MM3 0.0-0.7 BASOPHIL # (test code=BA#) 0.0 K/mm3 0.0-0.2 Comments to [facility]: Patient is currently in the ED waiting on a bedCARDIAC ENZYMES [id number] 20:19:00* Test Item Value Reference Range Comments CREATINE KINASE (CK) (test code=CK) 33 Units/L 39-308 TROPONIN-I (test code=TROPI) <0.02 NG/ML 0.00-0.06 REFERENCE RANGE TROPONIN I HEALTHY INDIVIDUALS: <0.06 ng/mL R/O ISCHEMIA: 0.07 - 0.60 ng/mL CUT-OFF RANGE FOR AMI: 0.60 - 1.5 ng/mL : Specimen comments: Please see the initial specimen in the lab as the first draw on this series Comments to [facility]: Please draw the 2nd specimen q4hrs after the first and the 3rd 8hrs after the first.Specime n comments: drawn Q4hrs then B5zbvDdelghzd to [facility]: Patient is currently in the ED waiting on a bedCBC W/AUTO [id number] 17:41:00* Test Item Value Reference Range Comments WHITE BLOOD CELL (test code=WBC) 8.9 K/mm3 4.5-11.0 RED BLOOD CELL (test code=RBC) 2.20 M/mm3 4.40-5.90 HEMOGLOBIN (test code=HGB) 7.1 gm/dL 13.0-17.0 HEMATOCRIT (test code=HCT) 24.6 % 36.0-48.0 MEAN CELL VOLUME (test code=MCV) 111.8 UM3 80.0-94.0 MEAN CELL HGB (test code=MCH) 32.3 UUG 25.5-32.5 MEAN CELL HGB CONCETRATION (test code=MCHC) 28.9 gm/dL 29.0-35.5 RED CELL DISTRIBUTION WIDTH (test code=RDW) 28.8 % 11.5-15.0 RED CELL DISTRIBUTION WIDTH SD (test code=RDW-SD) 117.0 fL 34.8-50.2 PLATELET COUNT (test code=PLT) 305 K/mm3 150-400 MEAN PLATELET VOLUME (test code=MPV) 8.4 fl 7.4-10.4 NEUTROPHIL % (test code=NT%) 93.1 % 49.0-76.0 IMMATURE GRANULOCYTE % (test code=IG%) 0.7 % 0.0-0.4 LYMPHOCYTE % (test code=LY%) 4.3 % 23.0-38.0 MONOCYTE % (test code=MO%) 1.6 % 1.0-10.0 EOSINOPHIL % (test code=EO%) 0.0 % 1.0-5.0 BASOPHIL % (test code=BA%) 0.3 % 0.0-1.0 NEUTROPHIL # (test code=NT#) 8.3 K/mm3 2.4-6.3 IMMATURE GRANULOCYTE # (test code=IG#) 0.06 x10 3/uL 0.00-0.07 LYMPHOCYTE # (test code=LY#) 0.4 K/mm3 1.2-4.0 MONOCYTE # (test code=MO#) 0.1 K/mm3 0.0-0.6 EOSINOPHIL # (test code=EO#) 0.0 K/MM3 0.0-0.7 BASOPHIL # (test code=BA#) 0.0 K/mm3 0.0-0.2 ANISOCYTOSIS (test code=ANISO) 1+ MACROCYTOSIS (test code=MACR) 1+ ELLIPTOCYTES (test code=ELL) OCCASIONAL SCHISTOCYTES (test code=MILI) 1+ HELMET CELLS (test code=HEL) OCCASIONAL BASIC METABOLIC [id number] 15:39:00* Test Item Value Reference Range Comments SODIUM (test code=NA) 141 mmol/l 134.0-147.0 POTASSIUM (test code=K) 5.0 mmol/L 3.6-5.2 CHLORIDE (test code=CL) 106 mmol/l 98.0-107.0 CARBON DIOXIDE (test code=CO2) 27.0 mmol/l 21.0-33.0 ANION GAP (test code=GAP) 13.0 0-20 GLUCOSE (test code=GLU) 116 mg/dl 70.0-110.0 BLOOD UREA NITROGEN (test code=BUN) 40 mg/dl 7.0-18.0 CREATININE (test code=CREAT) 1.95 mg/dL 0.60-1.30 GFR NON BLACK (test code=GFRNONBLACK) 35 mL/min 70-80 GFR BLACK (test code=GFRBLACK) 43 mL/min 85-97 CALCIUM (test code=CA) 8.5 mg/dl 8.0-10.5 B-TYPE NATRIURETIC [id number] 15:39:00* Test Item Value Reference Range Comments B-TYPE NATRIURETIC PEPTIDE (test code=BNP) 596 PG/ML 5-100 BASIC METABOLIC [id number] 15:25:00* Test Item Value Reference Range Comments SODIUM (test code=NA) 141 mmol/l 134.0-147.0 POTASSIUM (test code=K) 5.0 mmol/L 3.6-5.2 CHLORIDE (test code=CL) 106 mmol/l 98.0-107.0 CARBON DIOXIDE (test code=CO2) 27.0 mmol/l 21.0-33.0 ANION GAP (test code=GAP) 13.0 0-20 GLUCOSE (test code=GLU) 116 mg/dl 70.0-110.0 BLOOD UREA NITROGEN (test code=BUN) 40 mg/dl 7.0-18.0 CREATININE (test code=CREAT) 1.95 mg/dL 0.60-1.30 GFR NON BLACK (test code=GFRNONBLACK) 35 mL/min 70-80 GFR BLACK (test code=GFRBLACK) 43 mL/min 85-97 CALCIUM (test code=CA) 8.5 mg/dl 8.0-10.5 B-TYPE NATRIURETIC [id number] 15:25:00* Test Item Value Reference Range Comments B-TYPE NATRIURETIC PEPTIDE (test code=BNP) PG/ML 5-100 BASIC METABOLIC [id number] 15:24:00* Test Item Value Reference Range Comments SODIUM (test code=NA) 141 mmol/l 134.0-147.0 POTASSIUM (test code=K) 5.0 mmol/L 3.6-5.2 CHLORIDE (test code=CL) 106 mmol/l 98.0-107.0 CARBON DIOXIDE (test code=CO2) 27.0 mmol/l 21.0-33.0 ANION GAP (test code=GAP) 13.0 0-20 GLUCOSE (test code=GLU) mg/dl 70.0-110.0 BLOOD UREA NITROGEN (test code=BUN) mg/dl 7.0-18.0 CREATININE (test code=CREAT) mg/dL 0.60-1.30 GFR NON BLACK (test code=GFRNONBLACK) mL/min 70-80 GFR BLACK (test code=GFRBLACK) mL/min 85-97 CALCIUM (test code=CA) mg/dl 8.0-10.5 B-TYPE NATRIURETIC [id number] 15:24:00* Test Item Value Reference Range Comments B-TYPE NATRIURETIC PEPTIDE (test code=BNP) PG/ML 5-100 CBC W/AUTO [id number] 15:17:00* Test Item Value Reference Range Comments WHITE BLOOD CELL (test code=WBC) 8.9 K/mm3 4.5-11.0 RED BLOOD CELL (test code=RBC) 2.20 M/mm3 4.40-5.90 HEMOGLOBIN (test code=HGB) 7.1 gm/dL 13.0-17.0 HEMATOCRIT (test code=HCT) 24.6 % 36.0-48.0 MEAN CELL VOLUME (test code=MCV) 111.8 UM3 80.0-94.0 MEAN CELL HGB (test code=MCH) 32.3 UUG 25.5-32.5 MEAN CELL HGB CONCETRATION (test code=MCHC) 28.9 gm/dL 29.0-35.5 RED CELL DISTRIBUTION WIDTH (test code=RDW) 28.8 % 11.5-15.0 RED CELL DISTRIBUTION WIDTH SD (test code=RDW-SD) 117.0 fL 34.8-50.2 PLATELET COUNT (test code=PLT) 305 K/mm3 150-400 MEAN PLATELET VOLUME (test code=MPV) 8.4 fl 7.4-10.4 NEUTROPHIL % (test code=NT%) 93.1 % 49.0-76.0 IMMATURE GRANULOCYTE % (test code=IG%) 0.7 % 0.0-0.4 LYMPHOCYTE % (test code=LY%) 4.3 % 23.0-38.0 MONOCYTE % (test code=MO%) 1.6 % 1.0-10.0 EOSINOPHIL % (test code=EO%) 0.0 % 1.0-5.0 BASOPHIL % (test code=BA%) 0.3 % 0.0-1.0 NEUTROPHIL # (test code=NT#) 8.3 K/mm3 2.4-6.3 IMMATURE GRANULOCYTE # (test code=IG#) 0.06 x10 3/uL 0.00-0.07 LYMPHOCYTE # (test code=LY#) 0.4 K/mm3 1.2-4.0 MONOCYTE # (test code=MO#) 0.1 K/mm3 0.0-0.6 EOSINOPHIL # (test code=EO#) 0.0 K/MM3 0.0-0.7 BASOPHIL # (test code=BA#) 0.0 K/mm3 0.0-0.2 TROPONIN I [id number] 15:13:00* Test Item Value Reference Range Comments TROPONIN I RAPID (test code=TROPIRAP) 0.02 0.00-0.08 - XR CHEST 1 [id number] 15:05:00 FAX: Chandrakant Joe MD [phone] [place]: St: REG Name: JOHN MANJARREZ [facility] : [birth year] Age/S: 78/M [address] [facility] Unit #: [id number] Loc: [address] Phys: [place] [id number] Acct: [id number] Dis Date: Status: REG ER PHONE #: [phone] Exam Date: 12/23/2018 1440 FAX #: [phone] Reason: SOB EXAMS: CPT CODE: [id number] XR CHEST 1 V 30278 EXAMINATION: - XR CHEST 1 V. LOCATION: B2. HISTORY: SOB. COMPARISON: R adiograph dated 10/12/2017. TECHNIQUE: Single AP view of the chest was obtained. FINDINGS: The heart is enlarged in size. Med deanna sternotomy wires are present. There is coarsening of bilateral inters titial markings. No focal consolidation or pleural effusion is seen. No acute osseous abnormality is identified. IMPRESSION: Cardiomegaly with coarsening of bilateral interstitial markings, which can be seen with interstitial edema or an inflammatory process. El ectronically Signed by Darling Calloway on 12/23/2018 at 150 Reported and signed by: Neo Calloway M.D. CC: Chandrakant Merrill MD Technologist: SARAHI DIEZ [facility] Date/Time/By: 12/23/2018 (3413) : By: [email or web address] PAGE 1 Signed Report FAX: Chandrakant Joe MD [phone] [place]: St: REG Name: STANISLAW HENRIQUEZDDLESLIE KIM [facility] : 1940 Age/S: 78/M [address] [facility] [employer] [facility] Unit #: [id number] Loc: E.ERS2 [place], [place] Phys : [place] [address] Acct: [id number] Dis Date: Status: REG ER PHONE #: [phone] Exam Date: 12/23/2018 1440 F AX #: [phone] Reason: SOB EXAMS: CPT CODE: [id number] XR CHEST 1 V 63791 <Continued> Orig Print D/T: S: 12/23/2018 (150) PAGE 2 Signed Report - CT CHEST W/O [id number] 09:43:00 FAX: Chandrakant Joe MD [phone] [place]: St: REG Name: JOHN BOOKER [facility] : Age/S: 78/M [facility] Unit: [id number] Loc: E.CTS [place], [place]: [place] [address] Acct: [id number] Dis Date: Status: REG CLI PHONE #: [phone] Exam Date: 12/13/2018 0924 FAX #: [phone] Reason: PULMONARY FIBROSIS EXAMS: CPT CODE: [id number] CT CHEST W/O CONTRAST 23936 HISTORY: Pulmonary fibrosis. CT chest, unenhanced. Reformatted sagittal and coronal images. COMPARISON: July 27, 2018 August 21, 2015 Automated exposure control, iterative reconstruction technique, and/or adjustment of mA and/or kV according to patient's size was utilized for optimum radiati on dose reduction. No intravenous contrast was administered. Si gnificant pathology may be obscured. The upper mediastinum s hows some tiny shoddy lymph nodes but no pathologically enlarged nodes are appreciated, appearing to be subtly smaller for the precarinal nodes than before. CABG changes seen. Cardiac size upper normal no pericardial flu id. Normal aortic diameter found. Trace pericardial effusio n seen. Chest wall structures are symmetric. The fani g window settings show almost identical pattern with diffuse interstitial fibrotic changes, slightly more pronounced in the left lower lobe than els ewhere. Bronchiectasis in the right lower lobe seen. No evidence of isidro ycombing, consolidation or pneumothorax appreciated. Small r ight medial lung base nodule, stable from 2015. Reformatted images show almost identical lung pattern appearance to 2015 exam. No focal con solidation or bronchial tree abnormality.. IMPRESSION: Stable p attern for interstitial fibrosis. Bronchiectatic changes in the right l ower lobe, similarly. Small mediastinal lymph nodes, stable. Trace pleural effusions seen bilaterally. Location: U19 PAGE 1 Signed Report (CONTINUED) FAX: Chandrakant Joe MD [phone] [place]: St: REG Name: JOHN HENRIQUEZ [facility] : 1940 Age/S: 78/M [address] Unit: [id number] Loc: [place], [place]: [place] [address] ct: [id number] Dis Date: Status: REG CLI PHONE #: [phone] Exam Date: 12/13/2018 09 FAX #: [phone] Reason: PULMONARY FIBROSIS EXAMS: CPT CODE: [id number] CHEST W/O CONTRAST 35239 < Continued> at 0943 Reported and signed by: Gabino Montejo M.D. CC: Chandrakatn Merrill MD Technologist: EDITH DIAZ [facility] Dt/Tm: 12/13/2018 (0943) Shayy Orig Print D/T: S: 12/13/2018 (3046 PAGE 2 Signed Report SURGICAL [id number] 13:46:00 RUN DATE: 06/01/18 [facility] - Lab PAGE 1 RUN TIME: 1346 Specimen Inqui ry RUN USER: INTERFACE PATIENT: JOHN HENRIQUEZ ACCT #: [id number] LOC: [place] U #: [id number] AGE/SX: 78/M ROOM: [facility] RE05/29/18REG DR: Sa matt Jurado : 36 BED: 1 DIS: STATUS: ADM IN TLOC: SPEC #: [id number] RECD: 05/31/18-1548 STATUS: TANVIR REQ #: [id number] KIRSTIN: 05/31/18- SUBM DR: Sa matt Jurado MD ENTERED: 05/31/18 SP TYPE: SURG SPEC OTHR DR: No Sunni nikole or Family Physician Self Referred Chandrakant Clark MD,Roney HAYWOODORDERED: SPEC STAIN KAM[place], REQUEST COPIES TO: No Primary or Family Physician Self Re Chandrakant Roper MD [address] [place] [phone] Roney Mendoza MD [facility] [address] [place] [phone] OTHER PHONE [phone] (CELL) Carolina Jurado MD [address] [facility] [place] [address] [email or web address] PROCEDURES: SPEC STAIN KAMILLE (06/01/18-1223) REQUE ST (05/31/18-1550) TISSUES: JEJUNUM, NOS - JEJUNUM BX B)antrum bx FINAL DIAGNOSIS A. JEJUNAL BIOPSY: UNREMARKABLE SMALL INTESTINAL MUCOSA. B. STOMACH, ANTRUM BIOPSY: UNREMARKABLE OXYNTIC TYPE MUC RONNI. CPT CODE: 25882 x 2, 61706. VENUS CONCEPCION ON NEXT PAGE RUN DATE: 06/01/18 [facility] [place] PAGE 2 RUN TIME: 1346 Specimen Inquiry RUN USER: INTERFACE SPEC #: [id number] P ATIENT: JOHN HENRIQUEZ #[id number] (Continued) MACROSCOPIC Clinical history: Anemia Specimen A is received in formalin labeled "jejunal biopsy" and consists of two fragmentsof levin-pink soft tissue m easuring in aggregate 0.5 x 0.4 x 0.2 cm. One cassette. Specimen B is received in formalin labeled "antrum biopsy" and consists of two fragments oftan-pink sof t tissue measuring in aggregate 0.6 x 0.4 x 0.2 cm. One cassette. M ICROSCOPIC A. Sections of the jejunal biopsy demonstrate small intestinal mucosa with appropriatevillous to crypt ratio. There is no increased intraepithelial lymphocytes, acuteinflammation involving the glands, metaplasia, intervillous or ganisms, granulomas, viralcytopathic changes, dysplasia or malignancy identified . B. Sections of the antral biopsy demonstrate oxyntic type mucosa with no sig nificantlyincreased chronic inflammation in the lamina propria, acute inflammati on involving theglands, granulomas, viral cytopathic changes, intestinal metapla young, dysplasia ormalignancy identified. There are no H. pylori organisms identi fied on the Giemsa stain. Signed SIGNATURE ON FILE Samantha Osei 06/01/18 3000 END OF REPORT
[2019-03-30 07:14] VITALS: BP 133/90
[2019-03-30 09:01] VITALS: BP 133/92
--- NOTE | 2019-03-30 09:01 | NUR ---
0901am Bedside report received from [facility]. Identifiersx2. Alert oriented and appropriate, PERRLA, respirations even and unlabored to room air. Pulses x4 extremities equal and strong. Pedal pulses PT/DP Cap fill brisk < 3 sec.. Skin warm and dry integrity appears D/I. IV 22g to left presents healthy w/o s/s of infiltration or complaint. Abdomen soft and supple. pt offered toileting, denies need to urinate or defecate. No personal affects with patient. Family Michael. Pt and family verbalizes understanding of POC. Currently w/o complaint of pain or need. Encourage family to f/o Dr Shruti Gandara Urologist office for care. DC plans discussed and copies signed and given to family. No gross issues pain pallor pressure or dysrhythmia. princess/bk
[2019-03-30 09:10] VITALS: BP 112/68
[2019-03-30 09:16] VITALS: BP 119/68
[2019-03-30 09:30] VITALS: BP_SYST 113; BP_SYST 133; BP_DIAS 90; BP_DIAS 97
--- NOTE | 2019-03-30 09:30 | NUR ---
0930am meets DC criteria. Rt posterior Neph. tube site w/o drainage and intact. Assessed for s/s of complication and presecence of hematoma. warm, dry, no discolor. IV removed from 22g left hand . Distal tip appears intact. VS WNL. Pt denies pain, sob, or need at this time. Family Michael . Review of discharge paperwork and follow up instructions. verbalized understanding. Pt to wheelchair and transported to front of hospital. Transferred to private vehicle under own strength w/o incident with DC paperwork in hand. - ds/rn
--- NOTE | 2019-04-04 10:03 | Diagnostic Imaging Report ---
PROCEDURE: Genitourinary catheter conversion Procedural Personnel Attending physician(s): Gabriel Ramirez MD Fellow physician(s): None Resident physician(s): None Advanced practice provider(s): None Pre-procedure diagnosis: Ureteral obstruction Post-procedure diagnosis: Same Indication: Ureteral obstruction Additional clinical history: None Complications: No immediate complications. IMPRESSION: Successful conversion of right external nephrostomy tube to internal-external nephroureteral catheter. Plan: Routine exchange in 8 weeks or as needed. PROCEDURE SUMMARY - Target organ: Unilateral right [place] kidney - Antegrade nephrostogram(s) via the existing access - Conversion from nephrostomy tube to nephroureteral tube as described below - Additional procedure(s): None PROCEDURE DETAILS: Pre-procedure Consent: Informed consent for the procedure including risks, benefits and alternatives was obtained and time-out was performed prior to the procedure. Preparation: The site was prepared and draped using maximal sterile barrier technique including cutaneous antisepsis. Anesthesia/sedation Level of anesthesia/sedation: Moderate sedation (conscious sedation) Anesthesia/sedation administered by: Independent trained observer under attending supervision with continuous monitoring of the patient?s level of consciousness and physiologic status Total intra-service sedation time (minutes): 30 Right genitourinary catheter conversion Local anesthesia was administered. Initial nephrostogram was performed. A wire was placed through the existing tube and it was removed. The wire was navigated into the bladder. A nephroureteral tube was advanced over the wire and position was confirmed with contrast injection. . Pre-existing genitourinary catheter: 8.5 Indonesian nephrostomy catheter. Genitourinary catheter(s) placed: 8.5 Indonesian nephroureteral catheter. Findings: Proximal loop in the renal pelvis. Distal loop in the bladder. External catheter securement: Non-absorbable suture Additional genitourinary system intervention Genitourinary intervention: None Location of intervention: Not applicable Device used: Not applicable Description of intervention: Not applicable Post-intervention findings: Not applicable Contrast Contrast agent: Isovue 370 Contrast volume (mL): 10 Radiation Dose Fluoroscopy time (min): 4 Kerma area product (cGy-cm2): 1837.4 Additional Details Additional description of procedure: None Equipment details: None Specimens removed: None Estimated blood loss (mL): Less than 10 Standardized report: [email or web address] Attestation Signer name: Gabriel Ramirez MD I attest that I was present for the entire procedure. I reviewed the stored images and agree with the report as written. Signed by: Gabriel Ramirez MD on 04/04/2019 10:00 AM
== END | disposition home or self-care (01) ==
LOC: CATH LAB 06:29
PROVIDERS: ATTEND Urology
DX: N13.5 Crossing vessel and stricture of ureter without hydronephrosis (principal); C61 Malignant neoplasm of prostate; N39.3 Stress incontinence (female) (male); I12.9 Hypertensive chronic kidney disease with stage 1 through stage 4 chronic kidney disease, or unspecified chronic kidney disease; N18.9 Chronic kidney disease, unspecified; D64.9 Anemia, unspecified; R97.20 Elevated prostate specific antigen [PSA]; N13.30 Unspecified hydronephrosis; E66.9 Obesity, unspecified; E78.00 Pure hypercholesterolemia, unspecified; E78.5 Hyperlipidemia, unspecified; I25.810 Atherosclerosis of coronary artery bypass graft(s) without angina pectoris; Z79.82 Long term (current) use of aspirin; Z79.84 Long term (current) use of oral hypoglycemic drugs; Z68.30 Body mass index [BMI] 30.0-30.9, adult; Z87.442 Personal history of urinary calculi; Z95.1 Presence of aortocoronary bypass graft
CPT/HCPCS: 50434; C2625; J2001; J2250; J3010; J7040; Q9967

== ENCOUNTER → 2019-05-27 | Outpatient (CLI) | payer MEDICARE, BC ==
[~2019-05-27] MED LIST changes: +HEPARIN SOD/SOD CHLORIDE 1,000 ML ONE; -SODIUM CHLORIDE 0.9% 500ML 0 ML ONE; -SODIUM CHLORIDE 0.9% 500ML 1,000 ML ONE
== END ==
LOC: RAD 11:45 → EDSTATUS 12:00
PROVIDERS: ATTEND Radiology Vascular & Interventional Radiology
DX: N18.9 Chronic kidney disease, unspecified (principal)
CPT/HCPCS: 50693; C1769 ×2; C1887; J2001; Q9967; J2250; J3010